=== PATIENT | male | born 1935 | race Caucasian/White ===

== ENCOUNTER 2016-07-07 10:12 | Outpatient (CLI) | payer MEDICARE, BC | END 2016-07-07 10:13 | disposition home or self-care (01) | DX: I35.0 Nonrheumatic aortic (valve) stenosis (principal) ==

== ENCOUNTER 2016-07-15 17:39 | Emergency (ER) | payer MEDICARE, BC ==
[2016-07-15] MEDS ORDERED: IOPAMIDOL-300 100 ML VIAL IVP ONE (20:07)
[2016-07-15] MEDS ORDERED: PATIENT OWN MED PO STA (20:15)
== END 2016-07-15 21:06 | disposition short-term general hospital (02) ==
DX: J90 Pleural effusion, not elsewhere classified (principal); Z95.2 Presence of prosthetic heart valve; I51.7 Cardiomegaly; I25.10 Atherosclerotic heart disease of native coronary artery without angina pectoris; I71.2 Thoracic aortic aneurysm, without rupture; Z79.82 Long term (current) use of aspirin
CPT/HCPCS: 36415; 71010; 71275; 80053; 83690; 83880; 84484; 85025; 93005; 93010; 99284; 99285; Q9967

== ENCOUNTER 2016-07-15 20:55 | Outpatient (CLI) | payer MEDICARE, BC | END 2016-07-15 20:56 | disposition short-term general hospital (02) | DX: J90 Pleural effusion, not elsewhere classified (principal); Z95.2 Presence of prosthetic heart valve | CPT/HCPCS: A0425; A0426 ==

== ENCOUNTER 2017-06-27 09:21 | Outpatient (CLI) | payer MEDICARE, BC ==
--- NOTE | 2017-06-27 12:29 | XRAY Report ---
TWO VIEW CHEST: 06/27/2017 CLINICAL INDICATION: Edema, history of cardiac surgery. FINDINGS: Frontal and lateral views of the chest demonstrate changes of previous cardiac surgery. There is patchy bilateral airspace disease present, which may reflect edema or pneumonia. Pulmonary vascular prominence appears similar to previous. No effusion or pneumothorax is seen. IMPRESSION: POSTOPERATIVE CHANGES AND PULMONARY VASCULAR PROMINENCE, WITH PATCHY BILATERAL AIRSPACE DISEASE. THIS MAY REFLECT PULMONARY EDEMA OR SUPERIMPOSED INFECTION. TD: 06/27/2017 12:28
== END 2017-06-27 09:22 | disposition home or self-care (01) ==
LOC: DI 09:21
PROVIDERS: ATTEND Internal Medicine
DX: J98.4 Other disorders of lung (principal)
CPT/HCPCS: 71046

== ENCOUNTER 2017-09-06 09:25 | Outpatient (CLI) | payer MEDICARE, BC ==
[2017-09-06] MEDS ORDERED: IOPAMIDOL-300 100 ML VIAL ONE (10:27)
[2017-09-06] MEDS ORDERED: IOPAMIDOL-300 100 ML VIAL IVP ONE (11:16)
--- NOTE | 2017-09-06 11:17 | CT Report ---
CT CHEST WITH CONTRAST: 09/06/2017 CLINICAL INDICATION: Left-sided chest pain. TECHNIQUE: Axial CT images of the chest were obtained with 80 mL Isovue 300 intravenously. COMPARISON: 07/15/2016. FINDINGS: Postoperative changes of cardiac surgery are stable. No hilar or mediastinal lymphadenopathy is present. The lungs demonstrate fibrosis and bronchiectasis, with basilar atelectasis. No suspicious pulmonary nodule or mass lesion is appreciated. No effusion or pneumothorax is present. A small hiatal hernia is noted. Osseous structures demonstrate degenerative and postoperative changes. IMPRESSION: FIBROSIS AND BRONCHIECTASIS. POSTOPERATIVE CHANGES. NO EVIDENT ETIOLOGY FOR LEFT CHEST PAIN. CT DOSE REDUCTION STATEMENT In accordance with CT protocol optimization, one or more of the following dose reduction techniques were utilized for this exam: automated exposure control, adjustment of mA and/or KV based on patient size, or use of iterative reconstructive technique. TD: 09/06/2017 10:58
== END 2017-09-06 09:26 | disposition home or self-care (01) ==
LOC: LAB 09:25 → DI 09:26
PROVIDERS: ATTEND Physician Assistant Medical
DX: J84.10 Pulmonary fibrosis, unspecified (principal); J47.9 Bronchiectasis, uncomplicated; R07.9 Chest pain, unspecified
CPT/HCPCS: 36415; 71260; 82565; Q9967

== ENCOUNTER 2017-09-13 18:51 | Outpatient (CLI) | payer MEDICARE, BC ==
--- NOTE | 2017-09-14 09:38 | Ultrasound Report ---
SCROTAL DUPLEX: 09/13/2017 CLINICAL INDICATION: Hydrocele. TECHNIQUE: Real-time scanning was performed with territory representative static images obtained. FINDINGS: The right testicle measures 4.3 x 3.4 x 2.8 cm, and the left testicle measures 4.1 x 3.2 x 2.6 cm. Both testicles demonstrate normal flow and echotexture. The right epididymis demonstrates a small epididymal head cysts, measuring up to 7 mm. The left epididymis is unremarkable. Left greater than right hydrocele are present. No varicocele is identified. IMPRESSION: LEFT GREATER THAN RIGHT HYDROCELES. SMALL RIGHT EPIDIDYMAL HEAD CYSTS. NORMAL TESTES. TD: 09/14/2017 09:09
--- NOTE | 2017-09-14 09:40 | Ultrasound Report ---
LIMITED PELVIC ULTRASOUND: 09/13/2017 CLINICAL INDICATION: Hernia. TECHNIQUE: Real-time scanning was performed with junior sales representative static images obtained. FINDINGS: Ultrasound of the right inguinal region was performed. There is a right inguinal hernia present, with the neck measuring 1.3 cm. Reducible bowel loops are seen within the hernia sac. IMPRESSION: RIGHT INGUINAL HERNIA, CONTAINING REDUCIBLE BOWEL LOOPS. TD: 09/14/2017 09:11
== END 2017-09-13 18:52 | disposition home or self-care (01) ==
LOC: DI 18:51
PROVIDERS: ATTEND Family Medicine
DX: K40.90 Unilateral inguinal hernia, without obstruction or gangrene, not specified as recurrent (principal); N43.3 Hydrocele, unspecified; N50.3 Cyst of epididymis
CPT/HCPCS: 76857; 76870

== ENCOUNTER 2017-10-18 09:10 | Outpatient (CLI) | END 2017-10-18 09:11 | disposition home or self-care (01) ==

== ENCOUNTER 2017-11-14 09:29 | Outpatient (CLI) | payer MEDICARE, BC ==
[2017-11-14 09:51] LABS: BASOPHILS % (AUTO) 0.7 %; EOSINOPHILS # (AUTO) 0.2 10^3/uL (0.0-0.7); EOSINOPHILS % (AUTO) 3.4 %; HGB - HEMOGLOBIN 14.1 g/dL (14.0-18.0); LYMPHOCYTES # (AUTO) 1.5 10^3/uL (1.5-3.5); MEAN CORPUSCULAR HEMOGLOBIN 32.5 pg (27.0-31.0); MEAN CORPUSCULAR HGB CONC 33.6 g/dL (32.0-36.0); MEAN CORPUSCULAR VOLUME 96.8 fL (80.0-94.0); MEAN PLATELET VOLUME 7.5 fL (7.4-11.4); MONOCYTES # (AUTO) 0.6 10^3/uL (0.0-1.0); MONOCYTES % (AUTO) 8.2 %; NEUTROPHILS # (AUTO) 4.5 10^3/uL (1.5-6.6); NEUTROPHILS % (AUTO) 65.7 %; PLT - PLATELET COUNT 173 10^3/uL (130-450); RED BLOOD COUNT 4.32 10^6/uL (4.70-6.10); RED CELL DISTRIBUTION WIDTH 13.9 % (12.0-15.0); WHITE BLOOD COUNT 6.9 x10^3/uL (4.8-10.8)
[2017-11-14 10:10] LABS: ALBUMIN 4.2 g/dL (3.2-5.5); ALBUMIN/GLOBULIN RATIO 1.5 (1.0-2.2); BILIRUBIN,TOTAL 0.9 mg/dL (0.2-1.0); CALCIUM 8.7 mg/dL (8.5-10.3)
== END 2017-11-14 09:30 | disposition home or self-care (01) ==
LOC: LAB 09:29
PROVIDERS: ATTEND Internal Medicine Gastroenterology
DX: K42.9 Umbilical hernia without obstruction or gangrene (principal); E66.9 Obesity, unspecified; I35.8 Other nonrheumatic aortic valve disorders; K21.9 Gastro-esophageal reflux disease without esophagitis; G47.30 Sleep apnea, unspecified; J45.909 Unspecified asthma, uncomplicated; E78.5 Hyperlipidemia, unspecified; I25.10 Atherosclerotic heart disease of native coronary artery without angina pectoris; N43.3 Hydrocele, unspecified; K40.90 Unilateral inguinal hernia, without obstruction or gangrene, not specified as recurrent
CPT/HCPCS: 36415; 80053; 85025; 93005

== ENCOUNTER 2017-11-21 06:00 | Day surgery (SDC) | payer MEDICARE, BC ==
[2017-11-21] MEDS ORDERED: LACTATED RINGERS 1,000 ML IV ONE ×2 (06:39→10:21)
[2017-11-21] MEDS ORDERED: ceFAZolin 2 GM/50 ML 2 GM/50 ML BAG IV ONE (06:40)
[2017-11-21] MEDS ORDERED: BUPIVACAINE 0.25% PF 30 ML VIAL ONE (07:24)
[2017-11-21] MEDS ORDERED: LIDOCAINE 1%-EPI 1:100000 30 ML MDV ONE (07:25)
[2017-11-21] MEDS ORDERED: BUPIVACAINE 0.5% PF 30 ML VIAL ONE (07:48)
[2017-11-21] MEDS ORDERED: BUPIVACAINE 0.5% PF 30 ML VIAL INFIL ONE ×2 (08:15)
[2017-11-21] MEDS ORDERED: LIDOCAINE 1%-EPI 1:100000 20 ML MDV SUBQ ONE ×2 (08:15)
[2017-11-21] MEDS ORDERED: ceFAZolin 1 GM VIAL ONE (08:52)
[2017-11-21] MEDS ORDERED: ceFAZolin 1 GM VIAL IR ONE (08:53)
[2017-11-21] MEDS ORDERED: WATER FOR INJECTION,STERILE 10 ML ONE (08:58)
[2017-11-21] MEDS ORDERED: PROPOFOL 200 MG/20 ML VIAL IVP ONE (09:54)
[2017-11-21] MEDS ORDERED: LIDOCAINE-MPF 2% 5 ML VIAL IM ONE (09:54)
[2017-11-21] MEDS ORDERED: ACETAMINOPHEN 1,000 MG/100 ML 100 ML IV ONE (09:54)
--- NOTE | 2017-11-21 10:22 | OPERATIVE REPORT ---
DATE OF SERVICE: 11/21/2017 Physician: Bobby Zavala MD PREOPERATIVE DIAGNOSIS: Symptomatic right inguinal hernia. POSTOPERATIVE DIAGNOSIS: Symptomatic right inguinal hernia, direct. PROCEDURE PERFORMED: Open repair of symptomatic right direct inguinal hernia with ProGrip polypropylene mesh. ANESTHESIA: Local plus monitored anesthesia care by Dr. Omer. SURGEON: Bobby Zavala MD. ESTIMATED BLOOD LOSS: 10 mL. COMPLICATIONS: None. FINDINGS: Large cord lipoma was present within the inguinal canal, and a moderate sized direct right inguinal hernia was present. There was no evidence of indirect or femoral hernia. INDICATIONS FOR PROCEDURE: The patient is an 82-year-old gentleman with an increasingly painful, tender, reducible right groin bulge. He was diagnosed with a symptomatic right inguinal hernia, and advised to undergo repair. Local anesthesia will be used with monitored anesthesia care to minimize perioperative risk due to multiple severe medical comorbidities. TECHNIQUE: After informed consent, the patient was taken to the operating room where he was sedated and monitored. Preoperative preparation included the application of sequential calf compression boots, administration of 2 grams of cefazolin intravenously within an hour of the incision. His right groin was clipped and prepared with iodoform solution, following which a right groin block was instituted using a 50:50 combination of 0.5% Marcaine plain and 1% lidocaine with epinephrine. A total of 60 mL of the mixture was used. The right groin was re-prepared with ChloraPrep solution, and draped in the usual sterile fashion. A transverse incision was made in the skin lines of the right groin beginning just above the right pubic tubercle, and extending laterally approximately 6 cm in length. Hemostasis achieved with electrocautery and 2-0 Vicryl ties. Incision was carried down through the subcutaneous tissues until the external oblique aponeurosis was identified, and was incised along the lines of its fibers in such a manner as to open the external ring and expose the internal ring. The ilioinguinal nerve was divided to avoid entrapment and injury. The spermatic cord was mobilized and encircled with a Marnie drain. A large cord lipoma was identified and dissected free from surrounding cord structures at the level of the internal ring, where it was ligated with 2-0 Vicryl ties, amputated and discarded. The direct defect was similarly mobilized free from the surrounding cord structures, and was reduced into the peritoneal cavity, and the inguinal floor reinforced using interrupted 0 Ethibond sutures to maintain the reduction prior to mesh implantation. After hemostasis was assured and the inguinal floor fully exposed, the wound was irrigated with antibiotic solution containing 1 gram of cefazolin per liter, following which a right-sided ProGrip expanded polypropylene mesh was placed onto the field, soaked in the antibiotic solution, trimmed to appropriate size, and placed over the inguinal floor where it was secured circumferentially with interrupted 3-0 PDS sutures. Care was taken to avoid excessive entrapment of the cord by the mesh. The mesh was seen to lie nicely over the inguinal floor, covering it in its entirety, and extending beyond the internal ring laterally for approximately 3 cm. Again after hemostasis was assured, the wound was irrigated with antibiotic solution following which wound closure was accomplished in layers using continuous 2-0 Vicryl to reapproximate the external oblique aponeurosis overlying the cord, followed by 3-0 Vicryl for Eyal's fascia, followed by 4-0 Monocryl subcuticular skin closure and Dermabond. The procedure was then terminated. The patient was transferred out of the operating room in satisfactory condition. Sponge and needle counts were correct x2. No drains were used. TD: 11/21/2017 10:05
[2017-11-21 10:52] VITALS: BP 142/73
== END 2017-11-21 06:01 | disposition home or self-care (01) ==
LOC: SDS 06:00
PROVIDERS: ATTEND Internal Medicine Gastroenterology
PROC: 0VBF0ZZ Excision of Right Spermatic Cord, Open Approach (ICD-10-PCS; 2017-11-21)
PROC: 0YU50JZ Supplement Right Inguinal Region with Synthetic Substitute, Open Approach (ICD-10-PCS; principal; 2017-11-21 07:30)
DX: K40.90 Unilateral inguinal hernia, without obstruction or gangrene, not specified as recurrent (principal); D17.6 Benign lipomatous neoplasm of spermatic cord; G47.30 Sleep apnea, unspecified; I25.2 Old myocardial infarction; Z95.5 Presence of coronary angioplasty implant and graft; J45.909 Unspecified asthma, uncomplicated; E78.5 Hyperlipidemia, unspecified; Z87.891 Personal history of nicotine dependence; I25.10 Atherosclerotic heart disease of native coronary artery without angina pectoris; I35.8 Other nonrheumatic aortic valve disorders; N43.3 Hydrocele, unspecified; I50.9 Heart failure, unspecified
CPT/HCPCS: 49505; 55520; C1781; J0690; J7120

== ENCOUNTER 2018-03-23 10:29 | Outpatient (CLI) | payer MEDICARE, BC ==
--- NOTE | 2018-03-23 12:18 | XRAY Report ---
Reason: CERVICAL RADICULITIS Procedure Date: 03/23/2018 Accession Number: [id number] / [id number] Procedure: XR - Cervical Spine Complete CPT Code: FULL RESULT: EXAM: CERVICAL SPINE RADIOGRAPHY EXAM DATE: 03/23/2018 11:00 AM. CLINICAL HISTORY: CERVICAL RADICULITIS. COMPARISONS: None. TECHNIQUE: 5 views. FINDINGS: Alignment: 2 mm degenerative appearing anterolisthesis of C6 on C7. Bones: The lateral masses are asymmetric on the odontoid view with 2 mm shift to the left. The cervical vertebral bodies and posterior elements are well-visualized from the skull base through C7. Disks: There is multilevel complete loss of disk space height from C4 to C6. Facets: Moderate to severe facet arthropathy and lateral mass degenerative changes are noted throughout the cervical spine. Neural Foramina: The right C3-C4 neural foramen is moderately narrowed. Mild osseous neural foraminal narrowing is otherwise noted bilaterally at multiple levels in the mid cervical spine. Soft Tissues: Status post median sternotomy. No prevertebral soft tissue swelling. The visualized lung apices are clear. IMPRESSION: Moderate to severe degenerative changes as described. Asymmetric appearance of the odontoid view. This can be seen with suboptimal rotated positioning; however, in the trauma setting, this is considered suspicious. If there is any concern for injury to the C1-C2 complex, a low clinical threshold should be used to clarify the finding by CT cervical spine without contrast. The atlantooccipital relationship is not clear with these radiographs. RADIA
== END 2018-03-23 10:30 | disposition home or self-care (01) ==
LOC: DI 10:29
PROVIDERS: ATTEND Family Medicine
DX: M50.10 Cervical disc disorder with radiculopathy, unspecified cervical region (principal); M48.02 Spinal stenosis, cervical region
CPT/HCPCS: 72050

== ENCOUNTER 2018-04-27 11:41 | Day surgery (SDC) | payer MEDICARE, BC ==
[2018-04-27] MEDS ORDERED: LACTATED RINGERS 1,000 ML IV ONE (12:26)
--- NOTE | 2018-04-27 13:31 | ANESTHESIA ---
Pre-Anesthesia VS, & Labs - Diagnosis Change in bowel habits - Procedure Colonscopy Vital Signs: Temp Pulse Resp BP Pulse Ox 36.4 C L 98 28 H 150/91 H 97 04/27/18 11:58 04/27/18 11:58 04/27/18 11:58 04/27/18 11:58 04/27/18 11:58 Height 5 ft 10 in Weight (kg) 93.1 kg Body Mass Index 30.1 - NPO >8 hours Home Medications and Allergies Aspirin [Aspir 81] 81 mg PO DAILY 08/09/13 Atorvastatin Calcium [Lipitor] 40 mg PO DAILY 07/15/16 Acetaminophen 500 mg PO TID PRN 11/18/17 Cetirizine [ZyrTEC] 10 mg PO DAILY PRN 11/18/17 Cyclobenzaprine [Flexeril] 10 mg PO TID PRN 11/18/17 Ranitidine HCl [Acid Control] 150 mg PO DAILY 11/18/17 Senna [Senokot] 8.6 mg PO BID 11/18/17 Terazosin HCl 10 mg PO DAILY 11/18/17 Clobetasol Propionate/Emoll [Clobetasol Emollient 0.05% Crm] 15 gm TP DAILY 11/21/17 Nystatin Cream [Mycostatin Cream] 15 applic TOP DAILY 11/21/17 Allergies/Adverse Reactions: Allergies Allergy/AdvReac Type Severity Reaction Status Date / Time codeine Allergy Emesis Verified 11/18/17 12:34 fluoxetine HCl * AdvReac Severe Unknown Verified 04/27/18 12:24 [From Prozac] erythromycin base AdvReac Unknown Verified 11/18/17 12:34 horse serum Allergy Unknown Uncoded 04/27/18 12:21 Anes History & Medical History - Anesthetic History Anesthesia Complications: reports: No previous complications Family history of Anesthesia Complications: Denies Family history of Malignant Hyperthermia: Denies - Medical History Cardiovascular: reports: Congestive heart failure, Hypertension, High cholesterol, Coronary artery disease, Angina, [place], Atrial fibrillation, Arrhythmia Pulmonary: reports: Shortness of breath, Sleep apnea, CPAP use, Other Gastrointestinal: reports: GERD, GI bleed, Hemorrhoids, Cholelithiasis Urinary: reports: Benign prostate hypertrophy, Retention, Other Neuro: reports: None Musculoskeletal: reports: Osteoarthritis, Chronic back pain, Other Endocrine/Autoimmune: reports: None Blood Disorders: reports: None Skin: reports: Other Smoking Status: Former smoker Psychosocial: reports: No issues indicated - Surgical History General: Cholecystectomy, Appendectomy, Colonoscopy, Other Eyes Ears Nose Throat (EENT): Cataracts, Tonsil/Adenoidectomy Cardiothoracic: CABG, Coronary stent, Cardiac catheterization Urologic: Prostatic surgery Orthopedic: Rotator cuff repair Dermatologic: Skin cancer surgery Exam General: Alert, Oriented x3 Dental: WNL Mouth Opening: Greater than 4 Fingerbreadths Neck Mobility: Normal Mallampati classification: I Thyromental Distance: greater than 6 cm Respiratory: Normal breath sounds Cardiovascular: Regular rate Neurological: Normal gait Mental/Cognitive Status: Alert/Oriented X3 Cognitive Status: Within normal limits Plan Anesthesia Type: Total IV Consent for Procedure(s) Verified and Reviewed: Yes Code Status: Attempt Resuscitation ASA classification: 3-Severe systemic disease Is this case an emergency?: No
[2018-04-27] MEDS ORDERED: LIDOCAINE-MPF 2% 5 ML VIAL IM ONE (14:55)
[2018-04-27] MEDS ORDERED: PROPOFOL 200 MG/20 ML VIAL IVP ONE (14:55)
[2018-04-27 15:32] VITALS: BP 126/85
== END 2018-04-27 11:42 | disposition home or self-care (01) ==
LOC: SDS 11:41
PROVIDERS: ATTEND Internal Medicine Gastroenterology
PROC: 0DBP8ZZ Excision of Rectum, Via Natural or Artificial Opening Endoscopic (ICD-10-PCS; principal; 2018-04-27 12:45)
DX: D12.8 Benign neoplasm of rectum (principal); G47.33 Obstructive sleep apnea (adult) (pediatric); I11.0 Hypertensive heart disease with heart failure; I50.9 Heart failure, unspecified; E78.00 Pure hypercholesterolemia, unspecified; I25.119 Atherosclerotic heart disease of native coronary artery with unspecified angina pectoris; I48.91 Unspecified atrial fibrillation; G47.30 Sleep apnea, unspecified; K21.9 Gastro-esophageal reflux disease without esophagitis; N40.1 Benign prostatic hyperplasia with lower urinary tract symptoms; R33.8 Other retention of urine; M19.90 Unspecified osteoarthritis, unspecified site; G89.29 Other chronic pain; M54.9 Dorsalgia, unspecified; I25.2 Old myocardial infarction; Z87.891 Personal history of nicotine dependence; Z95.5 Presence of coronary angioplasty implant and graft; Z95.1 Presence of aortocoronary bypass graft; Z79.82 Long term (current) use of aspirin; Z79.891 Long term (current) use of opiate analgesic
CPT/HCPCS: 45380; J7120

== ENCOUNTER 2018-05-17 10:22 | Outpatient (CLI) | payer MEDICARE, BC ==
[2018-05-17 10:41] LABS: BASOPHILS # (AUTO) 0.1 10^3/uL (0.0-0.1); BASOPHILS % (AUTO) 0.8 %; EOSINOPHILS # (AUTO) 0.4 10^3/uL (0.0-0.7); EOSINOPHILS % (AUTO) 4.6 %; HGB - HEMOGLOBIN 14.8 g/dL (14.0-18.0); LYMPHOCYTES # (AUTO) 1.8 10^3/uL (1.5-3.5); LYMPHOCYTES % (AUTO) 22.3 %; MEAN CORPUSCULAR HEMOGLOBIN 32.5 pg (27.0-31.0); MEAN CORPUSCULAR HGB CONC 33.9 g/dL (32.0-36.0); MEAN CORPUSCULAR VOLUME 95.8 fL (80.0-94.0); MONOCYTES # (AUTO) 0.7 10^3/uL (0.0-1.0); MONOCYTES % (AUTO) 9.2 %; NEUTROPHILS # (AUTO) 4.9 10^3/uL (1.5-6.6); NEUTROPHILS % (AUTO) 63.1 %; PLT - PLATELET COUNT 177 10^3/uL (130-450); RED BLOOD COUNT 4.56 10^6/uL (4.70-6.10); RED CELL DISTRIBUTION WIDTH 13.4 % (12.0-15.0); WHITE BLOOD COUNT 7.8 x10^3/uL (4.8-10.8)
[2018-05-17 11:09] LABS: BILIRUBIN,URINE NEGATIVE (NEGATIVE); GLUCOSE, URINE (UA) NEGATIVE (NEGATIVE); KETONES,URINE (UA) NEGATIVE (NEGATIVE); LEUKOCYTE ESTERASE, URINE NEGATIVE (NEGATIVE); NITRITE,URINE NEGATIVE (NEGATIVE); OCCULT BLOOD,URINE NEGATIVE (NEGATIVE); PROTEIN,URINE NEGATIVE (NEGATIVE); UROBILINOGEN,URINE 0.2 (NORMAL) E.U./dL (NORMAL)
[2018-05-17 11:11] LABS: CLARITY,URINE CLEAR (CLEAR)
[2018-05-17 11:12] LABS: ALBUMIN 4.5 g/dL (3.2-5.5); ALBUMIN/GLOBULIN RATIO 1.7 (1.0-2.2); BILIRUBIN,TOTAL 0.9 mg/dL (0.2-1.0); CALCIUM 9.1 mg/dL (8.5-10.3); TOTAL PROTEIN 7.2 g/dL (6.7-8.2)
[2018-05-17 11:21] LABS: BACTERIA,URINE None Seen /HPF (None Seen); RBC,URINE None Seen /HPF (0-5); SQUAMOUS EPITHELIAL CELL,UR NONE SEEN (<= Few)
== END 2018-05-17 10:23 | disposition home or self-care (01) ==
LOC: LAB 10:22
PROVIDERS: ATTEND Internal Medicine Gastroenterology
DX: R11.0 Nausea (principal); N40.1 Benign prostatic hyperplasia with lower urinary tract symptoms; I25.10 Atherosclerotic heart disease of native coronary artery without angina pectoris
CPT/HCPCS: 36415; 80053; 81001; 85025; 87086

== ENCOUNTER 2018-06-05 07:51 | Day surgery (SDC) | payer MEDICARE, BC ==
--- NOTE | 2018-06-05 08:32 | ANESTHESIA ---
Pre-Anesthesia VS, & Labs - Diagnosis Open repair Left inguinal hernia with mesh - Procedure Left inguinal hernia Vital Signs: Temp Pulse Resp BP Pulse Ox 36.5 C 73 18 156/93 H 96 06/05/18 08:05 06/05/18 08:05 06/05/18 08:05 06/05/18 08:05 06/05/18 08:05 Height 5 ft 10 in Weight (kg) 92.2 kg Body Mass Index 30.1 Home Medications and Allergies Aspirin [Aspir 81] 81 mg PO DAILY 08/09/13 Atorvastatin Calcium [Lipitor] 40 mg PO DAILY 07/15/16 Acetaminophen 500 mg PO TID PRN 11/18/17 Cetirizine [ZyrTEC] 10 mg PO DAILY PRN 11/18/17 Cyclobenzaprine [Flexeril] 10 mg PO TID PRN 11/18/17 Ranitidine HCl [Acid Control] 150 mg PO DAILY 11/18/17 Senna [Senokot] 8.6 mg PO BID 11/18/17 Terazosin HCl 10 mg PO DAILY 11/18/17 Clobetasol Propionate/Emoll [Clobetasol Emollient 0.05% Crm] 15 gm TP DAILY 11/21/17 Nystatin Cream [Mycostatin Cream] 15 applic TOP DAILY 11/21/17 Allergies/Adverse Reactions: Allergies Allergy/AdvReac Type Severity Reaction Status Date / Time codeine Allergy Emesis Verified 11/18/17 12:34 fluoxetine HCl * AdvReac Severe urinary Verified 05/25/18 13:56 [From Prozac] retention erythromycin base AdvReac restrictive Verified 05/25/18 13:56 airway horse serum Allergy blindness Uncoded 05/25/18 13:56 Anes History & Medical History - Medical History Cardiovascular: reports: Congestive heart failure, Hypertension, High cholesterol, Coronary artery disease, Angina, [place], Atrial fibrillation, Arrhythmia, Valve disorder, Other (Saw green coffee blender in December, patient repor kieran no concerns. Stated last stress test was WNL) Pulmonary: reports: Asthma, Shortness of breath, Sleep apnea (Does not use CPAP), Other Gastrointestinal: reports: GERD, GI bleed, Colon polyps, Hemorrhoids, Cholelithiasis Urinary: reports: Benign prostate hypertrophy, Retention Neuro: reports: None Musculoskeletal: reports: Osteoarthritis, Chronic back pain Endocrine/Autoimmune: reports: None Blood Disorders: reports: None Skin: reports: Other Smoking Status: Former smoker (Quit 1985) - Surgical History General: Cholecystectomy, Appendectomy, Colonoscopy, Other Eyes Ears Nose Throat (EENT): Cataracts, Tonsil/Adenoidectomy, Other Cardiothoracic: Coronary stent, Valve replacement (AVR replacement 2016), Cardiac catheterization Urologic: Prostatic surgery Gynecologic:  Orthopedic: Hip replacement, Rotator cuff repair Dermatologic: Skin cancer surgery Results - EKG Results EKG Comparison: Reviewed EKG Exam General: Alert, Oriented x3, Cooperative, No acute distress Dental: WNL Mouth Openin Fingerbreadth Neck Mobility: Normal Mallampati classification: II Thyromental Distance: 4-6 cm Respiratory: Lungs clear, Normal breath sounds, No respiratory distress, No accessory muscle use Cardiovascular: Regular rate, Normal S1, Normal S2, No murmurs Mental/Cognitive Status: Alert/Oriented X3, Normal for patient Plan Anesthesia Type: General, MAC Consent for Procedure(s) Verified and Reviewed: Yes Code Status: Attempt Resuscitation ASA classification: 3-Severe systemic disease Is this case an emergency?: No
[2018-06-05] MEDS ORDERED: LACTATED RINGERS 1,000 ML IV ONE ×2 (08:43→11:39)
[2018-06-05] MEDS ORDERED: LIDOCAINE 1% 50 ML MDV ONE (08:51)
[2018-06-05] MEDS ORDERED: BUPIVACAINE 0.5%-EPI 1:200000 PF 30 ML VIAL ONE (08:52)
[2018-06-05] MEDS ORDERED: KETAMINE 500 MG/10 ML VIAL IVP ONE (09:00)
[2018-06-05] MEDS ORDERED: LIDOCAINE-MPF 2% 5 ML VIAL IM ONE (09:00)
[2018-06-05] MEDS ORDERED: PROPOFOL 200 MG/20 ML VIAL IVP ONE (09:00)
[2018-06-05] MEDS ORDERED: KETOROLAC 30 MG/ML VIAL IVP ONE (09:00)
[2018-06-05] MEDS ORDERED: MIDAZOLAM 2 MG/2 ML VIAL IVP ONE (09:00)
[2018-06-05] MEDS ORDERED: ePHEDrine 50 MG/ML VIAL IVP ONE (09:00)
[2018-06-05] MEDS ORDERED: ONDANSETRON 4 MG/2 ML VIAL IVP ONE (09:00)
[2018-06-05] MEDS ORDERED: ceFAZolin 1 GM VIAL ONE (09:03)
[2018-06-05] MEDS ORDERED: LIDOCAINE 1% 50 ML MDV SUBQ ONE ×2 (09:53)
[2018-06-05] MEDS ORDERED: BUPIVACAINE 0.5%-EPI 1:200000 PF 30 ML VIAL SUBQ ONE ×2 (09:53)
[2018-06-05] MEDS ORDERED: ceFAZolin 1 GM VIAL IR ONE (09:58)
[2018-06-05] MEDS ORDERED: IBUPROFEN 600 MG TABLET PO PRN (11:15)
[2018-06-05] MEDS ORDERED: ACETAMINOPHEN 325 MG TABLET PO PRN (11:15)
[2018-06-05] MEDS ORDERED: oxyCODONE 5 MG TABLET PO PRN (11:15)
[2018-06-05] MEDS ORDERED: ONDANSETRON 4 MG/2 ML VIAL IVP PRN (11:15)
--- NOTE | 2018-06-05 11:50 | OPERATIVE REPORT ---
DATE OF SERVICE: 06/05/2018 Physician: Bobby Zavala MD PREOPERATIVE DIAGNOSIS: Symptomatic left inguinal hernia. POSTOPERATIVE DIAGNOSIS: Symptomatic left inguinal hernia. PROCEDURE PERFORMED: Open repair with polypropylene mesh. ANESTHESIA: Local MAC converted to general LMA by Tiana Borja CRNA. SURGEON: Bobby Zavala MD ESTIMATED BLOOD LOSS: 10 mL. COMPLICATIONS: None. FINDINGS: A large sliding indirect inguinal hernia was present with preperitoneal fat comprising the sliding component. There was no evidence of direct or femoral hernia. INDICATIONS FOR PROCEDURE: Patient is an 83-year-old gentleman with an enlarging painful left groin bulge. Examination revealed a reducible left inguinal hernia extending into the scrotum. He was adv ised to undergo repair. TECHNIQUE: After informed consent, patient was taken to the operating room where he was sedated and monitored. Preoperative preparation included application of sequential calf compression boots and ad ministration of 2 grams cefazolin intravenously within 1 hour of the incision. His left groin had be en clipped in the ASU and was prepared with iodoform solution, following which a left groin block was instituted using a 50:50 combination of 1% lidocaine plain and 0.5% Marcaine with epinephrine. A to majo of 30 mL of the mixture was used. The patient's left groin was then re-prepared with ChloraPrep and draped in the usual sterile fashion. Because of repeated coughing that was unable to be readily controlled, patient was converted to general laryngeal mask anesthesia. A transverse incision was made in the skin lines of the left groin beginning above the pubic tubercle , extending laterally for a distance of approximately 5 cm. Hemostasis achieved with electrocautery and 2-0 Vicryl ties. Incision carried down through subcutaneous tissues until the external oblique a poneurosis was identified and was incised along the lines of its fibers in such a manner as to open t he external ring and expose the internal ring. The ilioinguinal nerve was identified, mobilized and divided to avoid entrapment and neuralgia postop. Spermatic cord was mobilized and encircled with a [place] drain. It was carefully dissected, isolating a large sliding component of preperitoneal fat, which was dissected and highly ligated, and divided at the level of the internal ring using 2-0 Vicr yl ties. This fatty tissue was excised and discarded. Careful search for true indirect and direct d efects was made and none was identified. After the cord had been appropriately skeletonized and hemo stasis achieved, the wound was irrigated with saline solution containing 1 gram of cefazolin per lite r, following which a Covidien medium-weight expanded polypropylene mesh that was precut and slotted w as soaked in antibiotic solution, placed over the inguinal floor and secured in place circumferential ly with continuous 3-0 Prolene sutures, securing the mesh to the shelving edge of Poupart's ligament inferiorly, to the internal oblique aponeurosis laterally and superiorly and to the lateral border of the rectus sheath medially. Care was taken to avoid excessive tightening of the patch around the co rd at the level of the internal ring. After hemostasis was assured, wound closure was accomplished in layers using continuous 2-0 Vicryl to reapproximate the external oblique aponeurosis overlying the cord, followed by 3-0 Vicryl to reappro ximate Eyal's fascia, followed by 4-0 Vicryl subcuticular skin closure, followed by Dermabond. Ane sthesia was terminated and patient transferred to the recovery room in satisfactory condition. Spong e and needle counts were correct and no drains were used. cc: Raymundo Santa DO TD: 06/05/2018 11:32
[2018-06-05 14:06] VITALS: BP 127/73
== END 2018-06-05 07:52 | disposition home or self-care (01) ==
LOC: SDS 07:51
PROVIDERS: ATTEND Internal Medicine Gastroenterology
PROC: 0YU60JZ Supplement Left Inguinal Region with Synthetic Substitute, Open Approach (ICD-10-PCS; principal; 2018-06-05 09:00)
DX: K40.91 Unilateral inguinal hernia, without obstruction or gangrene, recurrent (principal); R11.0 Nausea; N40.1 Benign prostatic hyperplasia with lower urinary tract symptoms; R33.8 Other retention of urine; K59.09 Other constipation; J45.909 Unspecified asthma, uncomplicated; G47.30 Sleep apnea, unspecified; J84.10 Pulmonary fibrosis, unspecified; E66.9 Obesity, unspecified; Z68.30 Body mass index [BMI] 30.0-30.9, adult; I25.10 Atherosclerotic heart disease of native coronary artery without angina pectoris; E78.5 Hyperlipidemia, unspecified; K21.9 Gastro-esophageal reflux disease without esophagitis; F32.9 Major depressive disorder, single episode, unspecified; Z79.52 Long term (current) use of systemic steroids; Z79.82 Long term (current) use of aspirin; Z79.51 Long term (current) use of inhaled steroids; Z95.5 Presence of coronary angioplasty implant and graft; I25.2 Old myocardial infarction; Z85.820 Personal history of malignant melanoma of skin; Z87.891 Personal history of nicotine dependence; Z95.3 Presence of xenogenic heart valve
CPT/HCPCS: 49525; J7120

== ENCOUNTER 2018-08-22 14:11 | Outpatient (CLI) | payer MEDICARE, BC ==
--- NOTE | 2018-08-23 11:31 | XRAY Report ---
Reason: BACK PAIN,RADICULAR SX,RIGHT HIP PAIN Procedure Date: 08/22/2018 Accession Number: [id number] / [id number] Procedure: XR - Hip w/Pelvis 2-3V RT CPT Code: FULL RESULT: EXAM: RIGHT HIP RADIOGRAPHY EXAM DATE: 08/22/2018 03:06 PM. CLINICAL HISTORY: Back pain, radicular symptoms, right hip pain. COMPARISON: XR HIP UNILAT MIN 2 VIEW 01/14/2009 7:02 PM. TECHNIQUE: 2 views. FINDINGS: The patient is status post interval bilateral total hip arthroplasty with no periprosthetic lucency to suggest hardware failure. No fracture or subluxation is detected. Bones are qualitatively osteopenic. IMPRESSION: Interval bilateral total hip arthroplasty. RADIA
--- NOTE | 2018-08-23 11:31 | XRAY Report ---
Reason: BACK PAIN/RADICULAR SX Procedure Date: 08/22/2018 Accession Number: [id number] / [id number] Procedure: XR - Lumbar Spine Complete CPT Code: FULL RESULT: EXAM: LUMBOSACRAL SPINE RADIOGRAPHY EXAM DATE: 08/22/2018 02:50 PM. CLINICAL HISTORY: Back pain/radicular symptoms. COMPARISONS: None. TECHNIQUE: 4 views. FINDINGS: Alignment: Normal. No spondylolisthesis or scoliosis. Osseous neural foramina are preserved on oblique views. Bones: Five [id number] lumbar vertebral bodies are present. The bones are qualitatively osteopenic; this limits evaluation for underlying fractures or masses. There is questionably mild loss of height of the L5 vertebral body, less than 25%. Otherwise, no fracture detected. Disks: Normal. Disk heights are maintained. Facets: Moderate to severe facet arthropathy predominating on L5. Sacroiliac Joints: Unremarkable. Soft Tissues: Normal. The visualized bowel gas pattern is normal. IMPRESSION: The bones are qualitatively osteopenic; this limits evaluation for underlying fractures or masses. Degenerative changes as described. RADIA
== END 2018-08-22 14:12 | disposition home or self-care (01) ==
LOC: DI 14:11
PROVIDERS: ATTEND Physician Assistant
DX: M47.9 Spondylosis, unspecified (principal); M85.88 Other specified disorders of bone density and structure, other site; M25.551 Pain in right hip; Z96.641 Presence of right artificial hip joint
CPT/HCPCS: 72110

== ENCOUNTER 2018-11-02 12:59 | Emergency (ER) | payer MEDICARE, BC ==
--- NOTE | 2018-11-02 13:20 | ED Physician Documentation ---
PD HPI CHEST PAIN - Stated complaint Stated Complaint: CHEST PX/DIFFICUTLY BREATHING - Chief complaint Chief Complaint: Cardiac - History obtained from History obtained from: Patient, Family - History of Present Illness Timing - onset: How many days ago (5) Timing - onset during: Light activity Timing - duration: Days (5) Timing - details: Gradual onset, Still present, Waxing and waning Pain level now: 4 Quality: Sharp, Pain Location: Substernal, Left chest Radiation: Jaw, Neck, Back Improved by: Rest Worsened by: Exertion, Inspiration, Movement Similar symptoms before: Diagnosis (angina) Recently seen: Clinic - Additional information Additional information: 83-year-old male with history of pulmonary fibrosis and an aortic valve replacement and stents for coronary disease has developed a cough 5 days ago and shortness of breath. He was seen by his primary care doctor and placed on a course of prednisone. He has been back out working in his yard and today he was out working when he developed acute shortness of breath and chest pain radiating to his neck and jaw. Review of Systems Constitutional: denies: Fever Eyes: denies: Decreased vision Ears: denies: Ear pain Nose: reports: Rhinorrhea / runny nose, Congestion Throat: denies: Sore throat Cardiac: reports: Chest pain / pressure, Palpitations. denies: Pedal edema, Calf pain Respiratory: reports: Dyspnea, Cough GI: denies: Abdominal Pain, Nausea, Vomiting : denies: Dysuria, Frequency PD PAST MEDICAL HISTORY - Past Medical History Cardiovascular: Congestive heart failure, Hypertension, High cholesterol, Coronary artery disease, Angina, [place], Atrial fibrillation, Arrhythmia, Valve disorder, Other (Saw assistant office manager in December, patient reported no concerns. 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:  Cardiovascular: Coronary stent, Valve replacement (AVR replacement 2017), Cardiac catheterization HEENT: Cataracts, Tonsil/Adenoidectomy, Other Derm: Skin cancer surgery - Present Medications Home Medications: Ambulatory Orders Medication Instructions Recorded Confirmed Aspirin [Aspir 81] 81 mg PO DAILY 08/09/13 06/05/18 Atorvastatin Calcium [Lipitor] 40 mg PO DAILY 07/15/16 06/05/18 Acetaminophen 500 mg PO TID PRN 11/18/17 05/25/18 Cetirizine [ZyrTEC] 10 mg PO DAILY PRN 11/18/17 06/05/18 Cyclobenzaprine [Flexeril] 10 mg PO TID PRN 11/18/17 06/05/18 Ranitidine HCl [Acid Control] 150 mg PO DAILY 11/18/17 06/05/18 Senna [Senokot] 8.6 mg PO BID 11/18/17 05/25/18 Terazosin HCl 10 mg PO DAILY 11/18/17 06/05/18 Clobetasol Propionate/Emoll 15 gm TP DAILY 11/21/17 06/05/18 [Clobetasol Emollient 0.05% Crm] Nystatin Cream [Mycostatin Cream] 15 applic TOP DAILY 11/21/17 06/05/18 - Allergies Allergies/Adverse Reactions: Allergies Allergy/AdvReac Type Severity Reaction Status Date / Time codeine Allergy Emesis Verified 11/02/18 13:07 fluoxetine HCl * AdvReac Severe urinary Verified 11/02/18 13:07 [From Prozac] retention Horse/Equine Containing AdvReac Severe Blindness Verified 11/02/18 13:07 Products erythromycin base AdvReac restrictive Verified 11/02/18 13:07 airway - Social History Does the pt smoke?: No Smoking Status: Former smoker (Quit 1985) Does the pt drink ETOH?: Yes Does the pt have substance abuse?: No - Immunizations Immunizations are current?: No Immunizations: TDAP >10years/unknown - POLST Patient has POLST: No PD ED PE NORMAL - Vitals Vital signs reviewed: Yes (hypertensive ) - General General: Alert and oriented X 3, Well developed/nourished - HEENT HEENT: Atraumatic, PERRL, EOMI - Neck Neck: Supple, no meningeal sign, No bony TTP - Cardiac Cardiac: RRR, No murmur - Respiratory Respiratory: No respiratory distress, Other (diminished breath sounds ) - Abdomen Abdomen: Soft, Non tender - Back Back: No CVA TTP, No spinal TTP - Derm Derm: Normal color, Warm and dry, No rash - Extremities Extremities: No deformity, No edema - Neuro Neuro: Alert and oriented X 3, 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, No motor deficit, No sensory deficit, Normal speech Eye Opening: Spontaneous Motor: Obeys Commands Verbal: Oriented GCS Score: 15 - Psych Psych: Normal mood, Normal affect Results - Vitals Vitals: Vital Signs - 24 hr 11/02/18 11/02/18 11/02/18 13:04 13:21 13:42 Temperature 36.8 C 36.8 C Heart Rate 71 66 68 Respiratory 19 16 16 Rate Blood Pressure 144/72 H 146/90 H 130/83 H O2 Saturation 97 96 96 11/02/18 11/02/18 11/02/18 14:39 14:41 15:11 Temperature 36.6 C Heart Rate 65 60 75 Respiratory 16 10 L 17 Rate Blood Pressure 135/71 H 140/75 H O2 Saturation 96 96 11/02/18 15:59 Temperature 36.5 C Heart Rate 72 Respiratory 20 Rate Blood Pressure 107/62 O2 Saturation 96 Oxygen O2 Source Room air - EKG (time done) 1307 Rate: Rate (enter#) (68) Rhythm: NSR QRS: LVH Compare to prior EKG: Unchanged from prior EKG (SPT 11-14-17 no significant change. ) Computer interpretation: Agree with computer - Labs Labs: Laboratory Tests 11/02/18 11/02/18 11/02/18 13:07 13:07 13:07 WBC 10.9 H RBC 4.26 L Hgb 13.8 L Hct 41.3 L MCV 96.9 H MCH 32.4 H MCHC 33.4 RDW 13.8 Plt Count 199 MPV 9.8 Neut # (Auto) 7.6 H Lymph # (Auto) 2.3 [place] # (Auto) 0.9 Eos # (Auto) 0.1 Baso # (Auto) 0.0 Absolute Nucleated RBC 0.00 Nucleated RBC % 0.0 Sodium 142 Potassium 4.3 Chloride 108 Carbon Dioxide 22 Anion Gap 12.0 BUN 19 Creatinine 0.8 Estimated GFR (MDRD) 92 Glucose 88 Calcium 9.2 Total Bilirubin 1.2 H AST 22 ALT 20 Alkaline Phosphatase 57 Troponin I 0.20 Total Protein 7.0 Albumin 4.2 Globulin 2.8 Albumin/Globulin Ratio 1.5 Lipase 31 11/02/18 15:18 WBC RBC Hgb Hct MCV MCH MCHC RDW Plt Count MPV Neut # (Auto) Lymph # (Auto) [place] # (Auto) Eos # (Auto) Baso # (Auto) Absolute Nucleated RBC Nucleated RBC % Sodium Potassium Chloride Carbon Dioxide Anion Gap BUN Creatinine Estimated GFR (MDRD) Glucose Calcium Total Bilirubin AST ALT Alkaline Phosphatase Troponin I 0.19 Total Protein Albumin Globulin Albumin/Globulin Ratio Lipase - Rads (name of study) chest Radiology: Prelim report reviewed (Impression 1. There is mild cardiomegaly. Patient has undergone median sternotomy. There is mild thoracic aortic tortuosity. Relatively stable peripheral reticular opacity within the lungs which is likely secondary to interstitial lung disease. No acute intrathoracic plain film abnormality.), EMP read indepedently, See rad report Procedures - IVC sono (time) 1330 Bedside IVC sono: IVC measures (cm) (1.21), Dehydration (est 1 liter deficit) PD MEDICAL DECISION MAKING - ED course Complexity details: reviewed old records, reviewed results, re-evaluated patient, considered differential, d/w patient, d/w family ED course: 83-year-old male with history of pulmonary fibrosis who is recently been placed on a course of prednisone for exacerbation of lung disease has had improvement in his lung disease began to feel better and has overexerted himself. 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 He is found to be dehydrated and he is hydrated here in the emergency department with resolution of his symptoms and he does have a bump in his troponin into the indeterminate range and this appears to be demand ischemia. He had no changes in his his electrocardiogram and he has a falling troponin now. He is discharged to home with a diagnosis of dehydration and overexertion. I did not feel that his cough was related to pneumonia and I did not feel that he required antibiotic. He does indicate that his cough is improving day by day he is coughing up now clear phlegm and feeling improved. Departure - Departure Disposition: 01 Home, Self Care Clinical Impression: Dehydration Overexertion Qualifiers: Encounter type: initial encounter Qualified Code(s): X50.9XXA - Other and unspecified overexertion or strenuous movements or postures, initial encounter Condition: Stable Instructions: ED Dehydration, Tachycardia Follow-Up: Markel Hodges MD [Primary Care Provider] - Comments: Today it appears that you have been overactive and dehydrated at the same time and this has caused an acute injury to the heart. This is a reversible process and the recommendation is to reduce your level of activity and hydrate adequately.
[2018-11-02 13:22] LABS: BASOPHILS % (AUTO) 0.3 %; EOSINOPHILS # (AUTO) 0.1 10^3/uL (0.0-0.7); EOSINOPHILS % (AUTO) 0.8 %; HGB - HEMOGLOBIN 13.8 g/dL (14.0-18.0); LYMPHOCYTES # (AUTO) 2.3 10^3/uL (1.5-3.5); LYMPHOCYTES % (AUTO) 21.2 %; MEAN CORPUSCULAR HEMOGLOBIN 32.4 pg (27.0-31.0); MEAN CORPUSCULAR HGB CONC 33.4 g/dL (32.0-36.0); MEAN CORPUSCULAR VOLUME 96.9 fL (80.0-94.0); MEAN PLATELET VOLUME 9.8 fL (7.4-11.4); MONOCYTES # (AUTO) 0.9 10^3/uL (0.0-1.0); MONOCYTES % (AUTO) 7.8 %; NEUTROPHILS # (AUTO) 7.6 10^3/uL (1.5-6.6); NEUTROPHILS % (AUTO) 69.4 %; PLT - PLATELET COUNT 199 10^3/uL (130-450); RED BLOOD COUNT 4.26 10^6/uL (4.70-6.10); RED CELL DISTRIBUTION WIDTH 13.8 % (12.0-15.0); WHITE BLOOD COUNT 10.9 x10^3/uL (4.8-10.8)
[2018-11-02 13:36] LABS: ALBUMIN 4.2 g/dL (3.2-5.5); ALBUMIN/GLOBULIN RATIO 1.5 (1.0-2.2); BILIRUBIN,TOTAL 1.2 mg/dL (0.2-1.0); CALCIUM 9.2 mg/dL (8.5-10.3); CREATININE 0.8 mg/dL (0.6-1.2)
[2018-11-02] MEDS ORDERED: IPRATROPIUM/ALBUTEROL 3 ML NEB INH STA (13:38)
[2018-11-02] MEDS ORDERED: SODIUM CHLORIDE 0.9% 1,000 ML IV ONE (13:38)
--- NOTE | 2018-11-02 14:02 | XRAY Report ---
Reason: CP Procedure Date: 11/02/2018 Accession Number: [id number] / [id number] Procedure: XR - Chest 1 View X-Ray CPT Code: 11111 FULL RESULT: EXAM: CHEST RADIOGRAPHY EXAM DATE: 11/02/2018 01:44 PM. CLINICAL HISTORY: Chest pain COMPARISON: CHEST 2 VIEW 06/27/2017 9:42 AM CHEST W/ 09/06/2017 10:28 AM. TECHNIQUE: 1 view. FINDINGS: Lungs/Pleura: There is peripheral reticular opacity within the lungs. There is no definite evidence of acute infiltrate. No pneumothorax. Mediastinum: There is cardiomegaly. Patient has undergone median sternotomy. There is thoracic aortic calcification. Other: No acute bony abnormalities are seen. IMPRESSION: 1. There is mild cardiomegaly. Patient has undergone median sternotomy. There is mild thoracic aortic tortuosity. 2. Relatively stable peripheral reticular opacity within the lungs which is likely secondary to interstitial lung disease. 3. No acute intrathoracic plain film abnormality. RADIA
[2018-11-02 16:51] VITALS: BP 121/65
== END 2018-11-02 16:53 | disposition home or self-care (01) ==
LOC: ED 12:59
DX: E86.0 Dehydration (principal); J84.10 Pulmonary fibrosis, unspecified; I25.119 Atherosclerotic heart disease of native coronary artery with unspecified angina pectoris; I11.0 Hypertensive heart disease with heart failure; I50.9 Heart failure, unspecified; Z95.5 Presence of coronary angioplasty implant and graft; Z95.2 Presence of prosthetic heart valve; Z87.891 Personal history of nicotine dependence
CPT/HCPCS: 36415; 71045; 80053; 83690; 84484; 85025; 93005; 94640; 96360; 96361; 99284

== ENCOUNTER 2019-08-27 18:52 | Outpatient (CLI) | payer MEDICARE, BC | END 2019-08-27 18:53 | disposition home or self-care (01) | LOC: COV 18:52 | PROVIDERS: ATTEND Family Medicine | DX: R05 Cough (principal); R06.02 Shortness of breath; R06.2 Wheezing; Z20.828 Contact with and (suspected) exposure to other viral communicable diseases | CPT/HCPCS: 81599 ==

== ENCOUNTER 2019-08-28 14:43 | Outpatient (CLI) | payer MEDICARE, BC ==
--- NOTE | 2019-08-28 15:37 | CT Report ---
Reason: PERSISTANT RIGHT SIDE VILLARREAL Procedure Date: 08/28/2019 Accession Number: [id number] / [id number] Procedure: CT - HEAD WO CPT Code: Final Report FULL RESULT: EXAM: CT HEAD EXAM DATE: 08/28/2019 02:51 PM. CLINICAL HISTORY: PERSISTENT RIGHT SIDE VILLARREAL. COMPARISON: HEAD 04/07/2009 3:11 PM. TECHNIQUE: Multiaxial CT images were obtained from the foramen magnum to the vertex. Reformats: Sagittal and coronal. IV contrast: None. In accordance with CT protocol optimization, one or more of the following dose reduction techniques were utilized for this exam: automated exposure control, adjustment of mA and/or KV based on patient size, or use of iterative reconstructive technique. FINDINGS: Ventricles, sulci, and cisterns are mildly prominent compatible with mild age-related volume loss which is new. Mild periventricular and subcortical low attenuation is consistent with chronic ischemic microvascular changes, also new. No intracranial hemorrhage. No CT manifestation of acute infarct. No visible mass lesion on this noncontrast study. No extra-axial fluid collection. Mild chronic ethmoid air cell mucosal thickening, unchanged. Mild mucosal thickening at the inferior margin of the left maxillary sinus. The mastoid air cells are clear. The orbital structures are unremarkable. The calvarium and skull base are unremarkable. IMPRESSION: No acute intracranial abnormality. Chronic age-related senescent changes as above. RADIA
== END 2019-08-28 14:44 | disposition home or self-care (01) ==
LOC: DI 14:43
PROVIDERS: ATTEND Family Medicine
DX: R51 Headache (principal)
CPT/HCPCS: 70450

== ENCOUNTER 2019-10-31 14:33 | Emergency (ER) | payer MEDICARE, BC ==
[2019-10-31] MEDS ORDERED: BUFFERED LIDOCAINE 10 ML SYRINGE SUBQ STA (14:48)
[2019-10-31] MEDS ORDERED: ceFAZolin 1 GM VIAL IM STA (14:49)
[2019-10-31] MEDS ORDERED: TETANUS/DIPHTHERIA/PERTUSSIS 0.5 ML SYRINGE IM ONE (14:49)
--- NOTE | 2019-10-31 14:50 | ED Physician Documentation ---
PD HPI UPPER EXT INJURY - Stated complaint Stated Complaint: THUMB LAC - Chief complaint Chief Complaint: Laceration - History obtained from History obtained from: Patient (84-year-old gentleman with unknown tetanus status cut his left thumb at home on a table saw just prior to arrival.) Review of Systems Constitutional: reports: Reviewed and negative Cardiac: reports: Reviewed and negative Respiratory: reports: Reviewed and negative PD PAST MEDICAL HISTORY - Past Medical History Cardiovascular: Congestive heart failure, Hypertension, High cholesterol, Coronary artery disease, Angina, [place], Atrial fibrillation, Arrhythmia, Valve disorder, Other (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:  Cardiovascular: Coronary stent, Valve replacement (AVR replacement 2016), Cardiac catheterization HEENT: Cataracts, Tonsil/Adenoidectomy, Other Derm: Skin cancer surgery - Present Medications Home Medications: Ambulatory Orders Medication Instructions Recorded Confirmed Aspirin [Aspir 81] 81 mg PO DAILY 08/09/13 06/05/18 Atorvastatin Calcium [Lipitor] 40 mg PO DAILY 07/15/16 06/05/18 Acetaminophen 500 mg PO TID PRN 11/18/17 05/25/18 Cetirizine [ZyrTEC] 10 mg PO DAILY PRN 11/18/17 06/05/18 Cyclobenzaprine [Flexeril] 10 mg PO TID PRN 11/18/17 06/05/18 Senna [Senokot] 8.6 mg PO BID 11/18/17 05/25/18 Terazosin HCl 10 mg PO DAILY 11/18/17 06/05/18 raNITIdine HCl [Acid Control] 150 mg PO DAILY 11/18/17 06/05/18 Clobetasol Propionate/Emoll 15 gm TP DAILY 11/21/17 06/05/18 [Clobetasol Emollient 0.05% Crm] Nystatin Cream [Mycostatin Cream] 15 applic TOP DAILY 11/21/17 06/05/18 Bacitracin Zinc Oint 1 applic TOP BID #1 tube 10/31/19 Cephalexin [Keflex] 500 mg PO Q6H #28 capsule 10/31/19 Hydrocodone/Acetaminophen 1 - 2 each PO Q6H PRN #14 tablet 10/31/19 [Hydrocodon-Acetaminophen 5-325] - Allergies Allergies/Adverse Reactions: Allergies Allergy/AdvReac Type Severity Reaction Status Date / Time codeine Allergy Emesis Verified 10/31/19 15:03 fluoxetine HCl * AdvReac Severe urinary Verified 10/31/19 15:03 [From Prozac] retention Horse/Equine Containing AdvReac Severe Blindness Verified 10/31/19 15:03 Products erythromycin base AdvReac restrictive Verified 10/31/19 15:03 airway - Social History Does the pt smoke?: No Smoking Status: Former smoker (Quit 1985) Does the pt drink ETOH?: Yes Does the pt have substance abuse?: No - Immunizations Immunizations are current?: No Immunizations: TDAP >10years/unknown - POLST Patient has POLST: No PD ED PE NORMAL - Vitals Vital signs reviewed: Yes - General General: Alert and oriented X 3, No acute distress - Extremities Extremities: Other (He has an extensive laceration of the left thumb which goes from the ulnar surface just near the proximal mid nailbed and then around the tuft to the other side. There is some tissue loss especially on the radial side and it is a fairly complicated laceration. He is numb at the tip but nl cap refi) - Neuro Neuro: Alert and oriented X 3, Normal speech - Psych Psych: Normal mood, Normal affect Results - Vitals Vitals: Vital Signs - 24 hr 10/31/19 10/31/19 14:43 15:33 Temperature 36.6 C Heart Rate 81 80 Respiratory 18 16 Rate Blood Pressure 134/78 H 128/75 O2 Saturation 93 95 Oxygen O2 Source Room air - Rads (name of study) L thumb XR Radiology: EMP read contemporaneously (Displaced comminuted fracture of the distal phalanx) Procedures - Laceration (location) L thumb Length in cm: 3 Wound type: Stellate, Irregular, Contaminated (mild, some fat debrided) Neurovascular status: Motor intact. No: Sensory intact Tendon involvement: Tendon intact Anesthesia: Lidocaine 1%, With bicarb (dig block) Wound Preparation: Hibiclens, Irrigated copiously NS Skin layer closure: Nylon, Interrupted, Size #-0 - enter number (4-0) Other: Patient tolerated well, No complications, Neurovascular intact, Tetanus booster given Complexity: Intermediate - Splint (location) L thumb Splint applied by: Tech Type of splint: Metal foam finger splint PD MEDICAL DECISION MAKING - ED course ED course: 84-year-old gentleman with extensive distal thumb laceration with open fracture. Case discussed by phone with on-call orthopedics, Dr. Perrin who recommends simple closure and splinting and follow-up in the office. Departure - Departure Disposition: 01 Home, Self Care Clinical Impression: Laceration Open fracture of thumb Qualifiers: Encounter type: initial encounter Phalanx: distal Fracture alignment: displaced Laterality: left Qualified Code(s): S62.522B - Displaced fracture of distal phalanx of left thumb, initial encounter for open fracture Condition: Good Record reviewed to determine appropriate education?: Yes Instructions: ED Fx Finger Open, ED Laceration Hand Follow-Up: [facility] [Provider Group] Prescriptions: Bacitracin Zinc Oint 1 applic TOP BID #1 tube Hydrocodone/Acetaminophen [Hydrocodon-Acetaminophen 5-325] 1 - 2 each PO Q6H PRN #14 tablet PRN Reason: pain Cephalexin [Keflex] 500 mg PO Q6H #28 capsule Comments: As discussed, I expect good healing, but I do expect you to be numb at the tip indefinitely. You can keep the splint on and dry for a day or 2, after that you can wash briefly with soap and water and apply the prescription bacitracin ointment, a nonstick dressing, and replace the finger splint. You should follow-up with an orthopedic surgeon on or about Tuesday, if you decide to follow-up with Dr. Armstrong off the [place] we are providing a CD with your x-rays on it so that she is not starting from scratch. Return if worse. Do not drink or drive while taking narcotic pain medication. Note that many narcotic pain relievers also contain Tylenol/acetaminophen. Please ensure that your total dose of acetaminophen from all sources does not exceed 3 g (3000 mg) per day. You may get constipated while on this medication. Take a stool softener such as Colace twice a day while you are on it. Also add an [id number]-[id number] laxative such as senna or MiraLAX on any day that you do not have a bowel movement. If you received a narcotic pain medication or sedative while in the emergency department, do not drive for the next 24 hours.
--- NOTE | 2019-10-31 15:28 | XRAY Report ---
PROCEDURE: Finger(s) LT INDICATIONS: thumb inj TECHNIQUE: 3 views of the first finger(s) acquired. COMPARISON: None FINDINGS: Bones: Acute slightly comminuted fracture involving the volar aspect of mid shaft first distal phalan x is seen with slight dorsal angulation and minimal dorsal and medial displacement at fracture site. No other fracture or dislocation is seen. Osteoarthritic changes are noted throughout left thumb. Soft tissues: Extensive soft tissue swelling and numerous fractured fragments are seen in the volar a nd radial aspect of left thumb at the level of first distal phalanx. No radiopaque foreign body is se en. IMPRESSION: Laceration and comminuted fracture involving the volar and radial aspect of left distal phalangeal sh aft with slight displacement and angulation at fracture site. Reviewed by: Sunil Hernández MD on 10/31/2019 3:26 PM PDT Approved by: Sunil Hernández MD on 10/31/2019 3:26 PM PDT Station ID: [id number]
[2019-10-31 16:27] VITALS: BP 125/78
== END 2019-10-31 16:00 | disposition home or self-care (01) ==
LOC: ED 14:33
DX: S62.522B Displaced fracture of distal phalanx of left thumb, initial encounter for open fracture (principal); W29.8XXA Contact with other powered hand tools and household machinery, initial encounter; Y93.89 Activity, other specified; Y92.009 Unspecified place in unspecified non-institutional (private) residence as the place of occurrence of the external cause; I10 Essential (primary) hypertension; Z87.891 Personal history of nicotine dependence
CPT/HCPCS: 12042; 73140; 90471

== ENCOUNTER 2020-01-29 13:56 | Outpatient (CLI) | payer MEDICARE, BC | END 2020-01-29 13:57 | disposition home or self-care (01) | LOC: COV 13:56 | PROVIDERS: ATTEND Family Medicine | DX: R50.9 Fever, unspecified (principal); R05 Cough; R06.02 Shortness of breath; M79.10 Myalgia, unspecified site; R53.83 Other fatigue; R09.81 Nasal congestion; R11.2 Nausea with vomiting, unspecified; Z20.828 Contact with and (suspected) exposure to other viral communicable diseases ==

== ENCOUNTER 2020-02-01 06:58 | Outpatient (CLI) | payer MEDICARE, BC ==
--- NOTE | 2020-02-04 06:12 | Ultrasound Report ---
PROCEDURE: Testicle w/Doppler INDICATIONS: iNCREASED PX GROIN/RT TECHNIQUE: Real-time scanning was performed of the scrotum and testicles, with image documentation. Color and p ulse Doppler interrogation was performed of both testicles. COMPARISON: 09/13/2017 similar ultrasound. FINDINGS: Right: Testicle is normal in size at 2.3 x 3.1 x 4.4 cm, and homogenous in echotexture except for mi ld tubular ectasia. Epididymis is normal in overall size and morphology. There is a small hydrocele with internal debris, also previously the case. No varicoceles. Overlying scrotal skin is normal in thickness. Left: Testicle is normal in size at 2.1 x 3.0 x 4.5 cm, and homogeneous in echotexture with mild tub ular ectasia.. Epididymis is normal in overall size and morphology. There is a mild hydrocele with i nternal debris as was previously the case, and no varicoceles. Overlying scrotal skin is normal in t hickness. Doppler: Color and pulse Doppler demonstrate normal and symmetric arterial flow in both testicles. IMPRESSION: Bilateral mild hydroceles with a small amount of internal debris, no evidence of asymmetric inflammat ion involving the testis or epididymis. There is a 5 mm epididymal head cyst on the right and mild bi lateral tubular ectasia involving the rete testis. A definite source of asymmetric increasing right g roin pain is not identified. Reviewed by: Dominick Parra MD on 02/01/2020 10:16 AM PDT Approved by: Dominick Parra MD on 02/01/2020 10:16 AM PDT Station ID: [id number]
== END 2020-02-01 06:59 | disposition home or self-care (01) ==
LOC: DI 06:58
PROVIDERS: ATTEND Urology
DX: N50.82 Scrotal pain (principal); N50.3 Cyst of epididymis; N43.3 Hydrocele, unspecified
CPT/HCPCS: 76870; 93975

== ENCOUNTER 2020-05-16 12:28 | Emergency (ER) | payer MEDICARE, BC ==
[2020-05-16] MEDS ORDERED: diltiaZEM INJ 5 MG/ML VIAL IVP STA (12:41)
--- NOTE | 2020-05-16 13:08 | ED Physician Documentation ---
PD HPI CHEST PAIN - Stated complaint Stated Complaint: CP - Chief complaint Chief Complaint: Cardiac - History obtained from History obtained from: Patient - History of Present Illness Quality: Pressure, Tightness Location: Substernal, Left chest Radiation: Left upper extremity Associated symptoms: Nausea, Feeling faint / dizzy, General Weakness, Palpitations. No: Vomiting, Cough Recently seen: Not recently seen - Additional information Additional information: Patient is an 85-year-old male who presents to the emergency department with chest pain since this morning. Is been ongoing for the past 3 hours. He states that his who is a retired nurse, listened to his chest and told him that he was back in atrial fibrillation. Heart rate was irregular. He has had atrial fibrillation in the past. Has a history of cardiac stents and valve replacemen t. Valve replacement was 2017, aortic valve. He is followed by cardiology at . Dr. Walker. Patient also states that he has pulmonary fibrosis and is followed by pulmonary for this. No shortness of breath currently. He does not know what medications he takes at home, but he states he does know that one is $9000 a month. He states that he gets his prescriptions from a mail order pharmacy. Review of Systems Constitutional: denies: Fever, Chills Nose: denies: Rhinorrhea / runny nose, Congestion Throat: denies: Sore throat Cardiac: reports: Chest pain / pressure, Palpitations Respiratory: denies: Cough GI: denies: Vomiting, Diarrhea Skin: denies: Rash Musculoskeletal: denies: Neck pain, Back pain Neurologic: denies: Headache PD PAST MEDICAL HISTORY - Past Medical History Cardiovascular: Congestive heart failure, Hypertension, High cholesterol, Coronary artery disease, Angina, [place], Atrial fibrillation, Arrhythmia, Valve disorder, Other (Saw compensator in December, patient reported no concerns. 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:  Cardiovascular: Coronary stent, Valve replacement (AVR replacement 2016), Cardiac catheterization HEENT: Cataracts, Tonsil/Adenoidectomy, Other Derm: Skin cancer surgery - Present Medications Home Medications: Ambulatory Orders Medication Instructions Recorded Confirmed Aspirin [Aspir 81] 81 mg PO DAILY 08/09/13 06/05/18 Atorvastatin Calcium [Lipitor] 40 mg PO DAILY 07/15/16 06/05/18 Acetaminophen 500 mg PO TID PRN 11/18/17 05/25/18 Cetirizine [ZyrTEC] 10 mg PO DAILY PRN 11/18/17 06/05/18 Cyclobenzaprine [Flexeril] 10 mg PO TID PRN 11/18/17 06/05/18 Senna [Senokot] 8.6 mg PO BID 11/18/17 05/25/18 Terazosin HCl 10 mg PO DAILY 11/18/17 06/05/18 raNITIdine HCl [Acid Control] 150 mg PO DAILY 11/18/17 06/05/18 Clobetasol Propionate/Emoll 15 gm TP DAILY 11/21/17 06/05/18 [Clobetasol Emollient 0.05% Crm] Nystatin Cream [Mycostatin Cream] 15 applic TOP DAILY 11/21/17 06/05/18 Bacitracin Zinc Oint 1 applic TOP BID #1 tube 10/31/19 Hydrocodone/Acetaminophen 1 - 2 each PO Q6H PRN #14 tablet 10/31/19 [Hydrocodon-Acetaminophen 5-325] cephALEXin [Keflex] 500 mg PO Q6H #28 capsule 10/31/19 - Allergies Allergies/Adverse Reactions: Allergies Allergy/AdvReac Type Severity Reaction Status Date / Time codeine Allergy Emesis Verified 05/16/20 12:30 fluoxetine HCl * AdvReac Severe urinary Verified 05/16/20 12:30 [From Prozac] retention Horse/Equine Containing AdvReac Severe Blindness Verified 05/16/20 12:30 Products erythromycin base AdvReac restrictive Verified 05/16/20 12:30 airway - Social History Does the pt smoke?: No Smoking Status: Former smoker (Quit 1985) Does the pt drink ETOH?: Yes Does the pt have substance abuse?: No - Immunizations Immunizations are current?: No Immunizations: TDAP >10years/unknown - POLST Patient has POLST: No PD ED PE NORMAL - Vitals Vital signs reviewed: Yes - General General: Alert and oriented X 3, No acute distress, Well developed/nourished - HEENT HEENT: PERRL, Moist mucous membranes - Neck Neck: Supple, no meningeal sign - Cardiac Cardiac: Other (tachycardic. irregular) - Respiratory Respiratory: No respiratory distress, Clear bilaterally - Abdomen Abdomen: Soft, Non tender, Non distended - Derm Derm: Warm and dry, No rash - Extremities Extremities: No calf tenderness / cord - Neuro Neuro: Alert and oriented X 3 - Psych Psych: Normal mood, Normal affect Results - Vitals Vitals: Vital Signs - 24 hr 05/16/20 05/16/20 05/16/20 12:31 13:00 13:15 Temperature 36.3 C L Heart Rate 145 H 136 H 128 H Respiratory 26 H 22 20 Rate Blood Pressure 115/86 H 138/91 H 118/78 O2 Saturation 96 96 98 05/16/20 05/16/20 05/16/20 13:20 13:25 13:28 Temperature 36.3 C L Heart Rate 108 H 101 H 72 Respiratory 20 20 20 Rate Blood Pressure 109/71 121/62 121/62 O2 Saturation 98 96 96 05/16/20 05/16/20 05/16/20 13:35 13:45 14:00 Temperature Heart Rate 72 74 68 Respiratory 18 18 18 Rate Blood Pressure 107/63 113/53 L 101/61 O2 Saturation 96 95 95 05/16/20 05/16/20 14:13 15:00 Temperature Heart Rate 68 61 Respiratory 18 18 Rate Blood Pressure 101/61 115/66 O2 Saturation 97 95 Oxygen O2 Source Room air - EKG (time done) 1236 Rate: Rate (enter#) (148) Rhythm: Atrial fibrillation (RVR) [place]: Normal QRS: Normal Ischemia: Non specific changes (rate related changes) 1439 Rate: Rate (enter#) (63) Rhythm: NSR [place]: Normal Intervals: Normal [place] QRS: Normal Ischemia: Normal ST segments - Labs Labs: Laboratory Tests 05/16/20 05/16/20 05/16/20 13:05 13:05 13:05 WBC 7.8 RBC 4.54 L Hgb 14.9 Hct 45.1 MCV 99.3 H MCH 32.8 H MCHC 33.0 RDW 12.9 Plt Count 191 MPV 9.6 Neut # (Auto) 5.0 Lymph # (Auto) 1.9 [place] # (Auto) 0.5 Eos # (Auto) 0.3 Baso # (Auto) 0.1 Absolute Nucleated RBC 0.00 Nucleated RBC % 0.0 Sodium 141 Potassium 3.3 L Chloride 104 Carbon Dioxide 25 Anion Gap 12.0 BUN 13 Creatinine 0.9 Estimated GFR (MDRD) 80 L Glucose 121 H Calcium 9.3 Total Bilirubin 1.0 AST 19 ALT 18 Alkaline Phosphatase 57 Troponin I High Sens 10.6 Total Protein 7.0 Albumin 4.2 Globulin 2.8 Albumin/Globulin Ratio 1.5 Lipase 33 - Rads (name of study) cxr Radiology: Prelim report reviewed, EMP read contemporaneously, See rad report PD MEDICAL DECISION MAKING - ED course Complexity details: reviewed results, re-evaluated patient, considered differential (No ST elevation [place], no aortic dissection, no PE, no tension pneumothorax, no aortic aneurysm), d/w patient ED course: Patient converted out of atrial fibrillation with a single dose of 10 mg of diltiazem. Stayed in sinus rhythm. Symptoms resolved. No further chest pain. Negative high-sensitivity troponin. Discussed the case with his compensator Dr. Walker, who recommends following up in the office. He states his office will contact the patient tomorrow to see how he was doing. Continue current medications. Patient counseled regarding signs and symptoms for which I believe and urgent re-evaluation would be necessary. Patient with good understanding of and agreement to plan and is comfortable going home at this time This document was made in part using voice recognition software. While efforts are made to proofread this document, sound alike and grammatical errors may o ccur. Bilateral lung interstitial thickening which has progressed compared to 11/02/2018. Finding could represent pulmonary edema, atypical/viral pneumonia or progression of chronic interstitial lung disease. Departure - Departure Disposition: 01 Home, Self Care Clinical Impression: Atrial fibrillation with RVR Chest pain Qualifiers: Chest pain type: unspecified Qualified Code(s): R07.9 - Chest pain, unspecified Condition: Good Instructions: ED Afib Follow-Up: Elder Guevara MD [Primary Care Provider] - Bernardino Vail MD [Physician No Access] - Comments: Return if you worsen. Follow up with your doctor for further care. Dr. Walker's staff will call you tomorrow. Continue your medications at home. Discharge Date/Time: 05/16/20 15:10
--- NOTE | 2020-05-16 13:11 | XRAY Report ---
PROCEDURE: Chest 1 View X-Ray INDICATIONS: Chest pain TECHNIQUE: One view of the chest was acquired. COMPARISON: 11/02/2018 and 07/16/2016 FINDINGS: Surgical changes and devices: Median sternotomy wires. Cystectomy clips. Lungs and pleura: No pleural effusions or pneumothorax. Interstitial thickening most pronounced the lung periphery has progressed in the interval since prior exam obtained 11/02/2018. Mediastinum: Mediastinal contours appear normal. Heart is mildly enlarged Bones and chest wall: No suspicious bony lesions. Overlying soft tissues appear unremarkable. IMPRESSION: Bilateral lung interstitial thickening which has progressed compared to 11/02/2018. Finding could repr esent pulmonary edema, atypical/viral pneumonia or progression of chronic interstitial lung disease. Reviewed by: Susi Sharpe MD, PhD on 05/16/2020 12:10 PM [facility] [place] Approved by: Susi Sharpe MD, PhD on 05/16/2020 12:10 PM [facility] [place] Station ID: [id number]
[2020-05-16 13:40] LABS: BASOPHILS # (AUTO) 0.1 10^3/uL (0.0-0.1); BASOPHILS % (AUTO) 0.6 %; EOSINOPHILS # (AUTO) 0.3 10^3/uL (0.0-0.7); EOSINOPHILS % (AUTO) 3.6 %; HGB - HEMOGLOBIN 14.9 g/dL (14.0-18.0); LYMPHOCYTES # (AUTO) 1.9 10^3/uL (1.5-3.5); LYMPHOCYTES % (AUTO) 24.2 %; MEAN CORPUSCULAR HEMOGLOBIN 32.8 pg (27.0-31.0); MEAN CORPUSCULAR VOLUME 99.3 fL (80.0-94.0); MEAN PLATELET VOLUME 9.6 fL (7.4-11.4); MONOCYTES # (AUTO) 0.5 10^3/uL (0.0-1.0); MONOCYTES % (AUTO) 6.7 %; NEUTROPHILS % (AUTO) 64.8 %; PLT - PLATELET COUNT 191 10^3/uL (130-450); RED BLOOD COUNT 4.54 10^6/uL (4.70-6.10); RED CELL DISTRIBUTION WIDTH 12.9 % (12.0-15.0); WHITE BLOOD COUNT 7.8 x10^3/uL (4.8-10.8)
[2020-05-16 13:46] LABS: ALBUMIN 4.2 g/dL (3.2-5.5); ALBUMIN/GLOBULIN RATIO 1.5 (1.0-2.2); CALCIUM 9.3 mg/dL (8.5-10.3); CREATININE 0.9 mg/dL (0.6-1.2)
[2020-05-16 17:46] VITALS: BP 115/66
== END 2020-05-16 15:10 | disposition home or self-care (01) ==
LOC: ED 12:28
DX: I48.91 Unspecified atrial fibrillation (principal); R07.89 Other chest pain; J84.10 Pulmonary fibrosis, unspecified; I25.10 Atherosclerotic heart disease of native coronary artery without angina pectoris; Z95.5 Presence of coronary angioplasty implant and graft; I10 Essential (primary) hypertension; Z95.2 Presence of prosthetic heart valve; Z79.82 Long term (current) use of aspirin; Z87.891 Personal history of nicotine dependence
CPT/HCPCS: 36415; 80053; 83690; 84484; 85025; 93005; 96374; 99284

== ENCOUNTER 2020-11-18 11:53 | Emergency (ER) | payer MEDICARE, BC ==
--- NOTE | 2020-11-18 12:25 | ED Physician Documentation ---
History of Present Illness - Stated complaint Stated Complaint: LT FACE/BACK PX - Chief complaint Chief Complaint: Cardiac - History obtained from History obtained from: Patient, Family - History of Present Illness Timing: Today Pain level max: 5 Pain level now: 3 - Additonal information Additional information: Patient is an 85-year-old male, history of 2 cardiac stents in the past as well as an aortic valve replacement. At the stents were in 2013, the valve was in 2017. He is followed by cardiology at [facility] and [place] in [place]. He states that today he felt a pain in the left side of his jaw, near his molars. He states that this occurred at about 945 this morning. He went to the store and in the store somebody asked him if he was okay and if he needed help. The patient states that he was not feeling well, but made it out to his car. He went home and saw his , still was not feeling well so came in for evaluation. He has a history of pulmonary fibrosis. Currently the symptoms have resolved. He states the pain also spread down his neck into the left upper chest and left back. Did not go into the left arm. No fevers. No chills. No cough. No nausea or vomiting. Review of Systems Ten Systems: 10 systems reviewed and negative Constitutional: denies: Fever, Chills Throat: denies: Sore throat Cardiac: denies: Palpitations Respiratory: denies: Dyspnea, Cough, Wheezing GI: denies: Vomiting, Diarrhea Skin: denies: Rash Musculoskeletal: denies: Neck pain, Back pain Neurologic: denies: Headache PD PAST MEDICAL HISTORY - Past Medical History Cardiovascular: Congestive heart failure, Hypertension, High cholesterol, Coronary artery disease, Angina, [place], Atrial fibrillation, Arrhythmia, Valve disorder, Other Respiratory: Asthma, Shortness of breath, Sleep apnea, Other Neuro: None Endocrine/Autoimmune: None GI: GERD, GI bleed, Colon polyps, Hemorrhoids, Cholelithiasis : Benign prostate hypertrophy, Retention HEENT: Chronic vision loss, Chronic sinusitis, Chronic hearing loss Psych: Depression, Anxiety Musculoskeletal: Osteoarthritis, Chronic back pain Derm: Other - Past Surgical History Past Surgical History: Yes General: Cholecystectomy, Appendectomy, Colonoscopy, Other Ortho: Hip replacement, 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:  Cardiovascular: Coronary stent, Valve replacement, Cardiac catheterization HEENT: Cataracts, Tonsil/Adenoidectomy, Other Derm: Skin cancer surgery - Present Medications Home Medications: Ambulatory Orders Medication Instructions Recorded Confirmed Aspirin [Aspir 81] 81 mg PO DAILY 08/09/13 11/18/20 Atorvastatin Calcium [Lipitor] 40 mg PO DAILY 07/15/16 11/18/20 Acetaminophen 500 mg PO TID PRN 11/18/17 11/18/20 Cetirizine [ZyrTEC] 10 mg PO DAILY PRN 11/18/17 11/18/20 Cyclobenzaprine [Flexeril] 10 mg PO TID PRN 11/18/17 11/18/20 Bacitracin Zinc Oint 1 applic TOP BID #1 tube 10/31/19 11/18/20 cephALEXin [Keflex] 500 mg PO Q6H #28 capsule 10/31/19 11/18/20 Albuterol Sulfate [Proair Hfa 1 - 2 puffs INH Q4H PRN 08/22/20 11/18/20 Inhaler] Pgxxku-Wuwwfhl-Tupn-L-Cysteine 1 tab PO DAILY 08/22/20 11/18/20 Doxycycline Hyclate 100 mg PO BID 08/22/20 11/18/20 Finasteride [Proscar] 5 mg PO DAILY 08/22/20 11/18/20 Fludrocortisone [Florinef] 0.1 mg PO DAILY 08/22/20 11/18/20 Fluorouracil [Carac] 1 applic TP DAILY 08/22/20 11/18/20 Montelukast [Singulair] 10 mg PO QPM 08/22/20 11/18/20 Niacinamide 500 mg PO DAILY 08/22/20 11/18/20 Nitroglycerin [Nitrostat] 0.4 mg SL Q5MIN PRN 08/22/20 11/18/20 Pantoprazole [Protonix] 40 mg PO BID 08/22/20 11/18/20 Pirfenidone [Esbriet] 801 mg PO TID 08/22/20 11/18/20 Potassium Citrate [Potassium 10 meq PO DAILY 08/22/20 11/18/20 Citrate ER] Sodium Chloride [Salt Tab] 1 gm PO DAILY 08/22/20 11/18/20 Tamsulosin [Flomax] 0.8 mg PO DAILY 08/22/20 11/18/20 Tizanidine HCl 2 mg PO PRN PRN 08/22/20 11/18/20 Vitamin B Complex 1 each PO DAILY 08/22/20 11/18/20 diltiaZEM CD [Cardizem Cd] 180 mg PO DAILY 08/22/20 11/18/20 traMADol [Ultram] 50 mg PO Q8HR PRN 08/22/20 11/18/20 - Allergies Allergies/Adverse Reactions: Allergies Allergy/AdvReac Type Severity Reaction Status Date / Time codeine Allergy Emesis Verified 11/18/20 12:10 fluoxetine HCl * AdvReac Severe urinary Verified 11/18/20 12:10 [From Prozac] retention Horse/Equine Containing AdvReac Severe Blindness Verified 11/18/20 12:10 Products erythromycin base AdvReac restrictive Verified 11/18/20 12:10 airway - Social History Does the pt smoke?: No Smoking Status: Never smoker Does the pt drink ETOH?: Yes Does the pt have substance abuse?: No - Immunizations Immunizations are current?: No Immunizations: TDAP >10years/unknown - POLST Patient has POLST: No PD ED PE NORMAL - Vitals Vital signs reviewed: Yes - General General: Alert and oriented X 3, No acute distress - HEENT HEENT: Moist mucous membranes - Neck Neck: Supple, no meningeal sign, No adenopathy, No JVD, No bruit - Cardiac Cardiac: RRR - Respiratory Respiratory: No respiratory distress, Clear bilaterally - Abdomen Abdomen: Soft, Non tender, Non distended - Derm Derm: Warm and dry - Extremities Extremities: No edema, No calf tenderness / cord - Neuro Neuro: Alert and oriented X 3, director of people 2-12 intact, No motor deficit, No sensory deficit, Normal speech Eye Opening: Spontaneous Motor: Obeys Commands Verbal: Oriented GCS Score: 15 - Psych Psych: Normal mood, Normal affect Results - Vitals Vitals: Vital Signs - 24 hr 11/18/20 11/18/20 11/18/20 11:57 12:30 13:00 Temperature 36.9 C Heart Rate 69 66 65 Respiratory 16 23 22 Rate Blood Pressure 129/68 130/65 117/57 L O2 Saturation 96 96 96 11/18/20 11/18/20 11/18/20 14:18 14:30 15:00 Temperature Heart Rate 55 L 56 L 53 L Respiratory 18 13 16 Rate Blood Pressure 129/66 139/72 H 138/68 H O2 Saturation 95 96 95 Oxygen O2 Source Nasal cannula Oxygen Flow Rate 3 - EKG (time done) 1208 Rate: Rate (enter#) (66) Rhythm: NSR [place]: Normal Intervals: Normal [place] QRS: Normal, LVH - Labs Labs: Laboratory Tests 11/18/20 11/18/20 11/18/20 12:32 12:32 12:32 WBC 7.8 RBC 3.92 L Hgb 12.8 L Hct 39.3 L MCV 100.3 H MCH 32.7 H MCHC 32.6 RDW 13.2 Plt Count 149 MPV 9.5 Neut # (Auto) 5.5 Lymph # (Auto) 1.6 [place] # (Auto) 0.4 Eos # (Auto) 0.2 Baso # (Auto) 0.0 Absolute Nucleated RBC 0.00 Nucleated RBC % 0.0 Sodium 142 Potassium 3.5 Chloride 111 Carbon Dioxide 24 Anion Gap 7.0 BUN 16 Creatinine 0.8 Estimated GFR (MDRD) 92 Glucose 148 H Calcium 8.8 Total Bilirubin 0.9 AST 17 ALT 13 Alkaline Phosphatase 42 Troponin I High Sens 9.2 Total Protein 6.2 L Albumin 3.7 Globulin 2.5 Albumin/Globulin Ratio 1.5 Lipase 25 - Rads (name of study) CT angio chest Radiology: Prelim report reviewed, EMP read contemporaneously, See rad report PD MEDICAL DECISION MAKING - ED course Complexity details: reviewed results, re-evaluated patient, considered differential (No ST elevation [place], no aortic dissection, no PE, no tension pneumothorax, no aortic aneurysm), d/w patient ED course: No acute findings on CT angio of the chest, chest x-ray, EKG, laboratory testing. Negative high-sensitivity troponin after greater than 4 hours from onset of symptoms. Patient asymptomatic here. Patient is well-appearing, nontoxic. Unclear etiology of his symptoms. No evidence of PE or aortic dissection. 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 Patient counseled regarding signs and symptoms for which I believe and urgent re-evaluation would be necessary. Patient with good understanding of and agreement to plan and is comfortable going home at this time CT angio chest 1. No evidence of central pulmonary embolism, with evaluation of distal subsegmental branches is limited in the lung bases due to motion artifact. There is enlargement of the pulmonary arteries suggestive of pulmonary arterial hypertension. 2. Findings compatible with chronic interstitial lung disease redemonstrated with increased septal thickening, groundglass opacities and bronchial wall thickening suggestive of superimposed pulmonary edema. 3. Increase in size of a pleural-based nodule in the right upper lobe anteriorly measuring up to 1.2 cm. The finding is indeterminate but a neoplastic process cannot be excluded. Consider further evaluation with PET/CT or follow-up in 3-6 months to demonstrate stability. 4. Mildly enlarged mediastinal lymph nodes are nonspecific and can are likely reactive but the differential includes metastatic disease. Recommend attention on follow-up. CXR: 1. Peripheral reticular interstitial opacities redemonstrated compatible with chronic interstitial lung disease. Findings appear progressed compared to the prior studies. 2. No definite acute consolidation. Departure - Departure Disposition: 01 Home, Self Care Clinical Impression: Chest pain Qualifiers: Chest pain type: unspecified Qualified Code(s): R07.9 - Chest pain, unspecified Condition: Good Instructions: ED Chest Pain Atypical Unkn Cause Follow-Up: Elder Guevara MD [Primary Care Provider] - Within 3 Days Comments: The cause of your symptoms is unclear today. Please follow-up with your doctor for further care. You should follow-up with your flatbed press operator as well as they may want to perform a cardiac stress test on you. Return if you worsen. 3. Increase in size of a pleural-based nodule in the right upper lobe anteriorly measuring up to 1.2 cm. The finding is indeterminate but a neoplastic process cannot be excluded. Consider further evaluation with PET/CT or follow-up in 3-6 months to demonstrate stability. CT angio chest: FINDINGS: Image quality: There is mild motion artifact. Pulmonary arteries: Pulmonary arteries demonstrate no intraluminal filling defects to suggest central pulmonary embolism. Evaluation of distal subsegmental branches is slightly limited by motion artifact in the lung bases. There is enlargement of the pulmonary arteries, with the main pulmonary artery measuring up to 3.7 cm suggestive of pulmonary arterial hypertension. Lungs and pleura: There are bilateral subpleural reticular opacities with a basilar predominance as well as scattered peripheral areas of groundglass opacity redemonstrated consistent with chronic interstitial lung disease. In addition, there is increased septal thickening and indistinct groundglass opacities as well as increased bronchial wall thickening suggestive of superimposed pulmonary edema. In the anterior right upper lobe, there is a pleural-based nodule measuring up to 1.2 cm on series 7 image 128 which appears increased in size compared to the prior studies. No pleural effusions or pneumothorax. Central and peripheral airways are patent. Mediastinum: Heart size is mildly enlarged, without pericardial effusion. There are moderate to severe coronary arterial vascular calcifications. There is a prosthetic aortic valve. Thoracic aorta is normal in caliber and enhancement. There are mildly enlarged mediastinal lymph nodes, with a financial sales representative precarinal node measuring up to 1.2 cm. An azygoesophageal node measures up to 1.3 cm. Esophagus is normal in caliber, with a small hiatal hernia. Bones and chest wall: No suspicious bony lesions. There is osteopenia of the visualized osseous structures. There are multilevel minimal compression deformities within the thoracic spine. These appear similar to the prior study. No axillary or supraclavicular adenopathy. The thyroid demonstrates no discrete nodules. Abdomen: Visualized upper abdomen demonstrates no definite acute abnormalities. IMPRESSION: 1. No evidence of central pulmonary embolism, with evaluation of distal subsegmental branches is limited in the lung bases due to motion artifact. There is enlargement of the pulmonary arteries suggestive of pulmonary arterial hypertension. 2. Findings compatible with chronic interstitial lung disease redemonstrated with increased septal thickening, groundglass opacities and bronchial wall thickening suggestive of superimposed pulmonary edema. 3. Increase in size of a pleural-based nodule in the right upper lobe anteriorly measuring up to 1.2 cm. The finding is indeterminate but a neoplastic process cannot be excluded. Consider further evaluation with PET/CT or follow-up in 3-6 months to demonstrate stability. 4. Mildly enlarged mediastinal lymph nodes are nonspecific and can are likely reactive but the differential includes metastatic disease. Recommend attention on follow-up. Discharge Date/Time: 11/18/20 15:37
[2020-11-18] MEDS ORDERED: IOPAMIDOL-300 100 ML VIAL ONE (12:27)
[2020-11-18 12:49] LABS: BASOPHILS % (AUTO) 0.5 %; EOSINOPHILS # (AUTO) 0.2 10^3/uL (0.0-0.7); EOSINOPHILS % (AUTO) 2.5 %; HCT - HEMATOCRIT 39.3 % (42.0-52.0); HGB - HEMOGLOBIN 12.8 g/dL (14.0-18.0); LYMPHOCYTES # (AUTO) 1.6 10^3/uL (1.5-3.5); LYMPHOCYTES % (AUTO) 20.6 %; MEAN CORPUSCULAR HEMOGLOBIN 32.7 pg (27.0-31.0); MEAN CORPUSCULAR HGB CONC 32.6 g/dL (32.0-36.0); MEAN CORPUSCULAR VOLUME 100.3 fL (80.0-94.0); MEAN PLATELET VOLUME 9.5 fL (7.4-11.4); MONOCYTES # (AUTO) 0.4 10^3/uL (0.0-1.0); MONOCYTES % (AUTO) 5.7 %; NEUTROPHILS # (AUTO) 5.5 10^3/uL (1.5-6.6); NEUTROPHILS % (AUTO) 70.4 %; PLT - PLATELET COUNT 149 10^3/uL (130-450); RED BLOOD COUNT 3.92 10^6/uL (4.70-6.10); RED CELL DISTRIBUTION WIDTH 13.2 % (12.0-15.0); WHITE BLOOD COUNT 7.8 x10^3/uL (4.8-10.8)
[2020-11-18 13:05] LABS: ALBUMIN 3.7 g/dL (3.2-5.5); ALBUMIN/GLOBULIN RATIO 1.5 (1.0-2.2); BILIRUBIN,TOTAL 0.9 mg/dL (0.2-1.0); CALCIUM 8.8 mg/dL (8.5-10.3); CREATININE 0.8 mg/dL (0.6-1.2); POTASSIUM 3.5 mmol/L (3.5-5.0); TOTAL PROTEIN 6.2 g/dL (6.7-8.2)
--- NOTE | 2020-11-18 13:17 | XRAY Report ---
PROCEDURE: Chest 1 View X-Ray INDICATIONS: Chest Pain TECHNIQUE: One view of the chest was acquired. COMPARISON: 05/16/2020. FINDINGS: Surgical changes and devices: Postsurgical changes are redemonstrated within the mediastinum. Lungs and pleura: The medial lung apices are partially excluded by the patient's neck soft tissues. No definite pneumothorax. No pleural effusions. Bilateral peripheral reticular interstitial opacities are redemonstrated. There is soft tissue fullness in the right hilum which appears similar to the pr ior studies. Mediastinum: Mediastinal contours appear unchanged. Heart size is mildly enlarged. Bones and chest wall: No suspicious bony lesions. Overlying soft tissues appear unremarkable. IMPRESSION: 1. Peripheral reticular interstitial opacities redemonstrated compatible with chronic interstitial doug ng disease. Findings appear progressed compared to the prior studies. 2. No definite acute consolidation. Reviewed by: Kemal Ahumada MD on 11/18/2020 1:16 PM PDT Approved by: Kemal Ahumada MD on 11/18/2020 1:16 PM PDT Station ID: [id number]
--- NOTE | 2020-11-18 14:47 | CT Report ---
PROCEDURE: ANGIO CHEST W/WO INDICATIONS: L sided chest pain CONTRAST: IV CONTRAST: Optiray 320 ml: 80 PO CONTRAST: *NO PO CONTRAST TECHNIQUE: After the administration of intravenous contrast, images were acquired from the pulmonary apices to t he posterior costophrenic angles. 3-dimensional maximum intensity projection (MIP) coronal and sagit majo reformats were then acquired through the thorax. For radiation dose reduction, the following was used: automated exposure control, adjustment of mA and/or kV according to patient size. COMPARISON: Chest CT 09/06/2017, CT chest angiogram 07/15/2016. FINDINGS: Image quality: There is mild motion artifact. Pulmonary arteries: Pulmonary arteries demonstrate no intraluminal filling defects to suggest centra l pulmonary embolism. Evaluation of distal subsegmental branches is slightly limited by motion artifa ct in the lung bases. There is enlargement of the pulmonary arteries, with the main pulmonary artery measuring up to 3.7 cm suggestive of pulmonary arterial hypertension. Lungs and pleura: There are bilateral subpleural reticular opacities with a basilar predominance as well as scattered peripheral areas of groundglass opacity redemonstrated consistent with chronic inte rstitial lung disease. In addition, there is increased septal thickening and indistinct groundglass o pacities as well as increased bronchial wall thickening suggestive of superimposed pulmonary edema. I n the anterior right upper lobe, there is a pleural-based nodule measuring up to 1.2 cm on series 7 i mage 128 which appears increased in size compared to the prior studies. No pleural effusions or pneum othorax. Central and peripheral airways are patent. Mediastinum: Heart size is mildly enlarged, without pericardial effusion. There are moderate to chandler re coronary arterial vascular calcifications. There is a prosthetic aortic valve. Thoracic aorta is n ormal in caliber and enhancement. There are mildly enlarged mediastinal lymph nodes, with a represen tative precarinal node measuring up to 1.2 cm. An azygoesophageal node measures up to 1.3 cm. Esophag us is normal in caliber, with a small hiatal hernia. Bones and chest wall: No suspicious bony lesions. There is osteopenia of the visualized osseous str uctures. There are multilevel minimal compression deformities within the thoracic spine. These appear similar to the prior study. No axillary or supraclavicular adenopathy. The thyroid demonstrates no discrete nodules. Abdomen: Visualized upper abdomen demonstrates no definite acute abnormalities. IMPRESSION: 1. No evidence of central pulmonary embolism, with evaluation of distal subsegmental branches is limi kieran in the lung bases due to motion artifact. There is enlargement of the pulmonary arteries suggesti ve of pulmonary arterial hypertension. 2. Findings compatible with chronic interstitial lung disease redemonstrated with increased septal th ickening, groundglass opacities and bronchial wall thickening suggestive of superimposed pulmonary ed korina. 3. Increase in size of a pleural-based nodule in the right upper lobe anteriorly measuring up to 1.2 cm. The finding is indeterminate but a neoplastic process cannot be excluded. Consider further evalua tion with PET/CT or follow-up in 3-6 months to demonstrate stability. 4. Mildly enlarged mediastinal lymph nodes are nonspecific and can are likely reactive but the differ ential includes metastatic disease. Recommend attention on follow-up. Reviewed by: Kemal Ahumada MD on 11/18/2020 2:46 PM PDT Approved by: Kemal Ahumada MD on 11/18/2020 2:46 PM PDT Station ID: [id number]
[2020-11-18] MEDS ORDERED: IOPAMIDOL-300 100 ML VIAL IVP ONE (14:50)
[2020-11-18 15:37] VITALS: BP 138/68
== END 2020-11-18 15:37 | disposition home or self-care (01) ==
LOC: ED 11:53
DX: R07.89 Other chest pain (principal); Z95.5 Presence of coronary angioplasty implant and graft; I25.10 Atherosclerotic heart disease of native coronary artery without angina pectoris; I11.9 Hypertensive heart disease without heart failure
CPT/HCPCS: 36415; 71045; 71275; 80053; 83690; 84484; 85025; 93005; 99284; Q9967

== ENCOUNTER 2021-06-10 08:49 | Outpatient (CLI) | payer MEDICARE, BC ==
--- NOTE | 2021-06-10 13:04 | CT Report ---
PROCEDURE: CHEST WO INDICATIONS: PULMONARY NODULE TECHNIQUE: Noncontrast 1mm axial images were acquired from the pulmonary apices to the posterior costophrenic an gles. Axial 5 mm soft tissue kernel reconstructions were performed as well as 8 mm axial MIP and cor onal and sagittal 5 mm reformations. For radiation dose reduction, the following was used: automate d exposure control, adjustment of mA and/or kV according to patient size. COMPARISON: 11/18/2026 FINDINGS: Image quality: Excellent. Lungs and pleura: Pleural-based nodule in the right upper lobe anteriorly measures 0.9 x 0.9 x 1.0 c m. Interstitial pulmonary fibrosis with a peripheral and lower lung zone predominance is seen. There is traction bronchiectasis in the lung bases bilaterally. No pulmonary edema. No acute air space opac ities. No pleural effusions or pneumothorax. Central and peripheral airways are patent and normal i n caliber. Mediastinum: Heart size is normal. No pericardial effusion. No mediastinal adenopathy by size crit eria. Thoracic aorta and central pulmonary arteries are normal in size. Esophagus is normal in graciela jaja. No hiatal hernia. Coronary arteries have atherosclerotic calcifications. The patient is status post median sternotomy. Bones and chest wall: No suspicious bony lesions. No vertebral body compression fractures. No axil christina or supraclavicular adenopathy by size criteria. The thyroid is normal in size. Abdomen: Visualized upper abdominal solid organs and bowel loops appear normal in the absence of con trast. There is a small hiatal hernia. IMPRESSION: 1. Right upper lobe nodule is unchanged, measuring slightly smaller compared to 11/18/2020 now measuri ng your 0.9 x 0.9 x 1.0 cm. 2. Unchanged pulmonary fibrosis with septal thickening and traction bronchiectasis with a lower lung zone basilar predominance. There are multilevel degenerative changes. Reviewed by: Tre Gauthier on 06/10/2021 1:03 PM PST Approved by: Tre Gauthier on 06/10/2021 1:03 PM PST Station ID: [id number]
== END 2021-06-10 08:50 | disposition home or self-care (01) ==
LOC: DI 08:49
PROVIDERS: ATTEND Internal Medicine Critical Care Medicine
DX: R91.1 Solitary pulmonary nodule (principal); J84.10 Pulmonary fibrosis, unspecified; J47.9 Bronchiectasis, uncomplicated

== ENCOUNTER 2021-09-01 10:33 | Outpatient (CLI) | payer MEDICARE, BC ==
--- NOTE | 2021-09-01 16:55 | XRAY Report ---
PROCEDURE: Chest 2 View X-Ray INDICATIONS: COUGH, ILD TECHNIQUE: 2 view(s) of the chest. COMPARISON: CT chest 06/10/2021 x-ray 11/18/2020 FINDINGS: Surgical changes and devices: None. Lungs and pleura: No pleural effusions or pneumothorax. Chronic interstitial changes are present. Mediastinum: Mediastinal contours are normal. Heart size is normal. Bones and chest wall: No suspicious bony abnormalities. Soft tissues appear unremarkable. IMPRESSION: Chronic interstitial changes without visualized consolidation compared to prior exam. Reviewed by: Lurdes Hayward MD on 09/01/2021 4:54 PM PDT Approved by: Lurdes Hayward MD on 09/01/2021 4:54 PM PDT Station ID: [id number]
== END 2021-09-01 10:34 | disposition home or self-care (01) ==
LOC: DI 10:33
PROVIDERS: ATTEND Internal Medicine
DX: R05.9 Cough, unspecified (principal); J84.9 Interstitial pulmonary disease, unspecified

== ENCOUNTER 2021-10-19 08:21 | Emergency (ER) | payer MEDICARE, BC ==
[2021-10-19 08:48] LABS: BASOPHILS % (AUTO) 0.6 %; EOSINOPHILS # (AUTO) 0.3 10^3/uL (0.0-0.7); EOSINOPHILS % (AUTO) 4.5 %; HCT - HEMATOCRIT 40.8 % (42.0-52.0); HGB - HEMOGLOBIN 13.6 g/dL (14.0-18.0); LYMPHOCYTES # (AUTO) 1.9 10^3/uL (1.5-3.5); LYMPHOCYTES % (AUTO) 27.1 %; MEAN CORPUSCULAR HEMOGLOBIN 32.9 pg (27.0-31.0); MEAN CORPUSCULAR HGB CONC 33.3 g/dL (32.0-36.0); MEAN CORPUSCULAR VOLUME 98.8 fL (80.0-94.0); MEAN PLATELET VOLUME 9.3 fL (7.4-11.4); MONOCYTES # (AUTO) 0.5 10^3/uL (0.0-1.0); MONOCYTES % (AUTO) 7.7 %; NEUTROPHILS # (AUTO) 4.1 10^3/uL (1.5-6.6); PLT - PLATELET COUNT 157 10^3/uL (130-450); RED BLOOD COUNT 4.13 10^6/uL (4.70-6.10); WHITE BLOOD COUNT 6.9 x10^3/uL (4.8-10.8)
--- NOTE | 2021-10-19 08:52 | ED Physician Documentation ---
History of Present Illness - Stated complaint Stated Complaint: CHEST PAIN - Chief complaint Chief Complaint: Cardiac - History obtained from History obtained from: Patient, Family - History of Present Illness Timing: Today Pain level max: 7 Pain level now: 0 - Additonal information Additional information: Patient is an 86-year-old male who presents to the emergency department chest pain at 05 30 today. This awoke him from sleep. Described as sharp. Also described as pressure. Lasted for a few hours. Feels similar to his pulmonary fibrosis in the past. Did not feel like his prior heart attack. He states that he has had a recent cardiac stress test which was reportedly normal. History of 2 cardiac stents in the past. Sees [facility], Dr. Walker, Dr. Pereira for pulmonology. Currently asymptomatic. No difficulty breathing at this time. No nausea vomiting. Review of Systems Constitutional: denies: Fever, Chills Nose: denies: Rhinorrhea / runny nose, Congestion Cardiac: denies: Palpitations Respiratory: denies: Dyspnea, Cough, Wheezing GI: denies: Vomiting, Diarrhea Skin: denies: Rash Musculoskeletal: denies: Neck pain, Back pain PD PAST MEDICAL HISTORY - Past Medical History Past Medical History: Yes Cardiovascular: Congestive heart failure, Hypertension, High cholesterol, Coronary artery disease, Angina, [place], Atrial fibrillation, Arrhythmia, Valve disorder, Other Respiratory: Asthma, Shortness of breath, Sleep apnea, Other Neuro: None Endocrine/Autoimmune: None GI: GERD, GI bleed, Colon polyps, Hemorrhoids, Cholelithiasis : Benign prostate hypertrophy, Retention HEENT: Chronic vision loss, Chronic sinusitis, Chronic hearing loss Psych: Depression, Anxiety Musculoskeletal: Osteoarthritis, Chronic back pain Derm: Other - Past Surgical History Past Surgical History: Yes General: Cholecystectomy, Appendectomy, Colonoscopy, Other Ortho: Hip replacement, Rotator cuff repair /[employer]ON[employer]ENCE [employer]OR:  Cardiovascular: Coronary stent, Valve replacement, Cardiac catheterization HEENT: Cataracts, Tonsil/Adenoidectomy, Other Derm: Skin cancer surgery - Present Medications Home Medications: Ambulatory Orders Medication Instructions Recorded Confirmed Aspirin [Aspir 81] 81 mg PO DAILY 08/09/13 11/18/20 Atorvastatin Calcium [Lipitor] 40 mg PO DAILY 07/15/16 11/18/20 Acetaminophen 500 mg PO TID PRN 11/18/17 11/18/20 Cetirizine [ZyrTEC] 10 mg PO DAILY PRN 11/18/17 11/18/20 Cyclobenzaprine [Flexeril] 10 mg PO TID PRN 11/18/17 11/18/20 Bacitracin Zinc Oint 1 applic TOP BID #1 tube 10/31/19 11/18/20 cephALEXin [Keflex] 500 mg PO Q6H #28 capsule 10/31/19 11/18/20 Albuterol Sulfate [Proair Hfa 1 - 2 puffs INH Q4H PRN 08/22/20 11/18/20 Inhaler] Yporef-Bhesfoz-Jshs-L-Cysteine 1 tab PO DAILY 08/22/20 11/18/20 Doxycycline Hyclate 100 mg PO BID 08/22/20 11/18/20 Finasteride [Proscar] 5 mg PO DAILY 08/22/20 11/18/20 Fludrocortisone [Florinef] 0.1 mg PO DAILY 08/22/20 11/18/20 Fluorouracil [Carac] 1 applic TP DAILY 08/22/20 11/18/20 Montelukast [Singulair] 10 mg PO QPM 08/22/20 11/18/20 Niacinamide 500 mg PO DAILY 08/22/20 11/18/20 Nitroglycerin [Nitrostat] 0.4 mg SL Q5MIN PRN 08/22/20 11/18/20 Pantoprazole [Protonix] 40 mg PO BID 08/22/20 11/18/20 Pirfenidone [Esbriet] 801 mg PO TID 08/22/20 11/18/20 Potassium Citrate [Potassium 10 meq PO DAILY 08/22/20 11/18/20 Citrate ER] Sodium Chloride [Salt Tab] 1 gm PO DAILY 08/22/20 11/18/20 Tamsulosin [Flomax] 0.8 mg PO DAILY 08/22/20 11/18/20 Tizanidine HCl 2 mg PO PRN PRN 08/22/20 11/18/20 Vitamin B Complex 1 each PO DAILY 08/22/20 11/18/20 diltiaZEM CD [Cardizem Cd] 180 mg PO DAILY 08/22/20 11/18/20 traMADol [Ultram] 50 mg PO Q8HR PRN 08/22/20 11/18/20 - Allergies Allergies/Adverse Reactions: Allergies Allergy/AdvReac Type Severity Reaction Status Date / Time codeine Allergy Emesis Verified 11/18/20 12:10 fluoxetine HCl * AdvReac Severe urinary Verified 11/18/20 12:10 [From Prozac] retention Horse/Equine Containing AdvReac Severe Blindness Verified 11/18/20 12:10 Products erythromycin base AdvReac restrictive Verified 11/18/20 12:10 airway - Social History Does the pt smoke?: No Smoking Status: Never smoker Does the pt drink ETOH?: Yes Does the pt have substance abuse?: No - Immunizations Immunizations are current?: No Immunizations: TDAP >10years/unknown - POLST Patient has POLST: No PD ED PE NORMAL - Vitals Vital signs reviewed: Yes - General General: Alert and oriented X 3, No acute distress - HEENT HEENT: PERRL, Moist mucous membranes - Neck Neck: Supple, no meningeal sign - Cardiac Cardiac: RRR, Strong equal pulses - Respiratory Respiratory: No respiratory distress, Clear bilaterally - Abdomen Abdomen: Soft, Non tender, Non distended - Derm Derm: Warm and dry - Extremities Extremities: No edema, No calf tenderness / cord - Neuro Neuro: Alert and oriented X 3 - Psych Psych: Normal mood, Normal affect Results - Vitals Vitals: Vital Signs - 24 hr 10/19/21 10/19/21 10/19/21 08:26 08:30 09:01 Temperature 36.6 C Heart Rate 65 66 62 Respiratory 18 17 Rate Blood Pressure 136/49 H 140/72 H O2 Saturation 99 99 95 10/19/21 10/19/21 10/19/21 09:36 10:03 10:30 Temperature Heart Rate 53 L 56 L 64 Respiratory 17 15 14 Rate Blood Pressure 129/67 126/66 124/96 H O2 Saturation 95 97 96 10/19/21 10/19/21 10/19/21 11:00 11:25 13:00 Temperature 36.7 C Heart Rate 59 L 62 63 Respiratory 17 16 18 Rate Blood Pressure 122/64 135/70 H O2 Saturation 95 96 94 10/19/21 13:06 Temperature 96.6 C H Heart Rate 63 Respiratory 20 Rate Blood Pressure 112/72 O2 Saturation 94 Oxygen O2 Source Room air - EKG (time done) 0828 Rate: Rate (enter#) (65) Rhythm: NSR [place]: Normal Intervals: Normal IA QRS: LVH Ischemia: Normal ST segments - Labs Labs: Laboratory Tests 10/19/21 10/19/21 10/19/21 08:42 08:42 08:42 WBC 6.9 RBC 4.13 L Hgb 13.6 L Hct 40.8 L MCV 98.8 H MCH 32.9 H MCHC 33.3 RDW 13.0 Plt Count 157 MPV 9.3 Neut # (Auto) 4.1 Lymph # (Auto) 1.9 Dauphin # (Auto) 0.5 Eos # (Auto) 0.3 Baso # (Auto) 0.0 Absolute Nucleated RBC 0.00 Nucleated RBC % 0.0 Sodium 140 Potassium 4.1 Chloride 107 Carbon Dioxide 22 Anion Gap 11.0 BUN 20 Creatinine 1.1 Estimated GFR (MDRD) 63 L Glucose 103 H Calcium 9.1 Total Bilirubin 0.5 AST 15 ALT 13 Alkaline Phosphatase 44 Troponin I High Sens 9.7 Total Protein 6.7 Albumin 4.1 Globulin 2.6 Albumin/Globulin Ratio 1.6 Lipase 40 10/19/21 10:28 WBC RBC Hgb Hct MCV MCH MCHC RDW Plt Count MPV Neut # (Auto) Lymph # (Auto) [place] # (Auto) Eos # (Auto) Baso # (Auto) Absolute Nucleated RBC Nucleated RBC % Sodium Potassium Chloride Carbon Dioxide Anion Gap BUN Creatinine Estimated GFR (MDRD) Glucose Calcium Total Bilirubin AST ALT Alkaline Phosphatase Troponin I High Sens 9.1 Total Protein Albumin Globulin Albumin/Globulin Ratio Lipase - Rads (name of study) cxr Radiology: Final report received, EMP read contemporaneously, See rad report PD MEDICAL DECISION MAKING - ED course Complexity details: reviewed results, re-evaluated patient, considered differential (No ST elevation IN, no aortic dissection, no PE, no tension pneumothorax, no aortic aneurysm), d/w patient, d/w risk assessment consultant ED course: 86-year-old male with chest pain today. Unclear etiology. Negative high sensitivity troponin x2. Patient is fully asymptomatic here. Discussed the case with his commercial real estate underwriter. He will follow-up with him later this week. Patient is comfortable going home. Patient counseled regarding signs and symptoms for which I believe and urgent re-evaluation would be necessary. Patient with good understanding of and agreement to plan and is comfortable going home at this time This document was made in part using voice recognition software. While efforts are made to proofread this document, sound alike and grammatical errors may occur. IMPRESSION: No acute cardiopulmonary disease process. Chronic bilateral interstitial prominence Departure - Departure Disposition: 01 Home, Self Care Clinical Impression: Chest pain Qualifiers: Chest pain type: unspecified Qualified Code(s): R07.9 - Chest pain, unspecified Condition: Good Instructions: ED Chest Pain Atypical Unkn Cause Follow-Up: Raymundo Santa DO [Primary Care Provider] - Within 1 week Bernardino Vail MD [Physician No Access] - Comments: Dr. Walker's office will call you later this week for an appointment. Please return if you worsen. Your laboratory testing, EKG and chest x-ray do not show any acute abnormalities today. Discharge Date/Time: 10/19/21 13:10
--- NOTE | 2021-10-19 08:53 | XRAY Report ---
PROCEDURE: Chest 1 View X-Ray INDICATIONS: Chest Pain TECHNIQUE: One view of the chest was acquired. COMPARISON: 09/01/2021, 11/18/2020. FINDINGS: Surgical changes and devices: Median sternotomy wires.. Lungs and pleura: No pleural effusions or pneumothorax. Interstitial prominence with peripheral pred ominance is stable compared to prior exams. Mediastinum: Mediastinal contours appear normal. Heart size is normal. Bones and chest wall: No suspicious bony lesions. Overlying soft tissues appear unremarkable. IMPRESSION: No acute cardiopulmonary disease process. Chronic bilateral interstitial prominence Reviewed by: Susi Sharpe MD, PhD on 10/19/2021 8:52 AM PDT Approved by: Susi Sharpe MD, PhD on 10/19/2021 8:52 AM PDT Station ID: [id number]
[2021-10-19 09:03] LABS: ALBUMIN 4.1 g/dL (3.2-5.5); ALBUMIN/GLOBULIN RATIO 1.6 (1.0-2.2); BILIRUBIN,TOTAL 0.5 mg/dL (0.2-1.0); CALCIUM 9.1 mg/dL (8.5-10.3); CREATININE 1.1 mg/dL (0.6-1.2); POTASSIUM 4.1 mmol/L (3.5-5.0); TOTAL PROTEIN 6.7 g/dL (6.7-8.2)
[2021-10-19 13:07] VITALS: BP 112/72
== END 2021-10-19 13:10 | disposition home or self-care (01) ==
LOC: ED 08:21
DX: R07.9 Chest pain, unspecified (principal); I11.0 Hypertensive heart disease with heart failure; I50.9 Heart failure, unspecified; I48.91 Unspecified atrial fibrillation; Z79.82 Long term (current) use of aspirin
CPT/HCPCS: 36415; 80053; 83690; 84484; 85025; 93005; 99283; 99284

== ENCOUNTER 2023-06-22 08:00 | Outpatient (CLI) | payer MEDICARE, BC | END 2023-06-22 23:59 | disposition home or self-care (01) | LOC: LAB.R 08:00 | PROVIDERS: ATTEND Nurse Practitioner | DX: R20.8 Other disturbances of skin sensation (principal) | CPT/HCPCS: 87070; 87077; 87181; 87205 ==

== ENCOUNTER 2023-07-29 11:44 | Emergency (ER) | payer MEDICARE, BC ==
--- NOTE | 2023-07-29 12:15 | ED Physician Documentation ---
PD HPI HEAD INJURY - Stated complaint Stated Complaint: H/A - Chief complaint Chief Complaint: Neuro - History obtained from History obtained from: Patient - History of Present Illness Mechanism of head injury: Fell Where head injury occurred: Home Timing - onset: How many weeks ago (3) Location of injury: Left, Front Quality of pain: Pain, Throbbing Associated symptoms: No: LOC, Nausea / vomiting, Neck pain Symptoms improve with: Rest Contributing factors: No: Anticoagulated, Intoxicated Similar symptoms before: Has not had sx before Recently seen: Not recently seen - Additional information Additional information: Cyrus Kimball is an 88-year-old male who had a vivid more dream 1 month ago and leapt out of bed. He hit the top of his head and had a small laceration. He refused to be seen at the time and he has since developed a progressive headache. He is here today for evaluation of this head injury. He indicates that he has had a number of vivid dreams enough so that his puts pillows in the bed to prevent him from moving all over the place. HeIs also complaining of constipation and difficulty walking. He denies falls. Review of Systems Constitutional: denies: Fever Eyes: denies: Loss of vision, Decreased vision Ears: denies: Ear pain Nose: denies: Congestion Throat: denies: Sore throat Cardiac: denies: Chest pain / pressure, Palpitations Respiratory: reports: Dyspnea (similar to always), Cough, Wheezing GI: denies: Abdominal Pain, Nausea, Vomiting, Constipation, Diarrhea : denies: Dysuria, Frequency Skin: denies: Rash Musculoskeletal: denies: Neck pain, Back pain, Extremity pain Neurologic: reports: Headache, Head injury. denies: Generalized weakness, Focal weakness, Numbness, LOC PD PAST MEDICAL HISTORY - Past Medical History Cardiovascular: Congestive heart failure, Hypertension, High cholesterol, Coronary artery disease, Angina, NE, Atrial fibrillation, Arrhythmia, Valve disorder, Other Respiratory: Asthma, Shortness of breath, Sleep apnea, Other Neuro: None Endocrine/Autoimmune: None GI: GERD, GI bleed, Colon polyps, Hemorrhoids, Cholelithiasis : Benign prostate hypertrophy, Retention HEENT: Chronic vision loss, Chronic sinusitis, Chronic hearing loss Psych: Depression, Anxiety Musculoskeletal: Osteoarthritis, Chronic back pain Derm: Other - Past Surgical History Past Surgical History: Yes General: Cholecystectomy, Appendectomy, Colonoscopy, Other Ortho: Hip replacement, Rotator cuff repair Cardiovascular: Coronary stent, Valve replacement, Cardiac catheterization HEENT: Cataracts, Tonsil/Adenoidectomy, Other Derm: Skin cancer surgery - Present Medications Home Medications: Ambulatory Orders Medication Instructions Recorded Confirmed Aspirin [Aspir 81] 81 mg PO DAILY 08/09/13 11/18/20 Atorvastatin Calcium [Lipitor] 40 mg PO DAILY 07/15/16 11/18/20 Acetaminophen 500 mg PO TID PRN 11/18/17 11/18/20 Cetirizine [ZyrTEC] 10 mg PO DAILY PRN 11/18/17 11/18/20 Cyclobenzaprine [Flexeril] 10 mg PO TID PRN 11/18/17 11/18/20 Bacitracin Zinc Oint 1 applic TOP BID #1 tube 10/31/19 11/18/20 cephALEXin [Keflex] 500 mg PO Q6H #28 capsule 10/31/19 11/18/20 Albuterol Sulfate [Proair Hfa 1 - 2 puffs INH Q4H PRN 08/22/20 11/18/20 Inhaler] Xidvzk-[id number]-Dbdp-L-Cysteine 1 tab PO DAILY 08/22/20 11/18/20 Doxycycline Hyclate 100 mg PO BID 08/22/20 11/18/20 Finasteride [Proscar] 5 mg PO DAILY 08/22/20 11/18/20 Fludrocortisone [Florinef] 0.1 mg PO DAILY 08/22/20 11/18/20 Fluorouracil [Carac] 1 applic TP DAILY 08/22/20 11/18/20 Montelukast [Singulair] 10 mg PO QPM 08/22/20 11/18/20 Niacinamide 500 mg PO DAILY 08/22/20 11/18/20 Nitroglycerin [Nitrostat] 0.4 mg SL Q5MIN PRN 08/22/20 11/18/20 Pantoprazole [Protonix] 40 mg PO BID 08/22/20 11/18/20 Pirfenidone [Esbriet] 801 mg PO TID 08/22/20 11/18/20 Potassium Citrate [Potassium 10 meq PO DAILY 08/22/20 11/18/20 Citrate ER] Sodium Chloride [Salt Tab] 1 gm PO DAILY 08/22/20 11/18/20 Tamsulosin [Flomax] 0.8 mg PO DAILY 08/22/20 11/18/20 Tizanidine HCl 2 mg PO PRN PRN 08/22/20 11/18/20 Vitamin B Complex 1 each PO DAILY 08/22/20 11/18/20 diltiaZEM CD [Cardizem Cd] 180 mg PO DAILY 08/22/20 11/18/20 traMADol [Ultram] 50 mg PO Q8HR PRN 08/22/20 11/18/20 - Allergies Allergies/Adverse Reactions: Allergies Allergy/AdvReac Type Severity Reaction Status Date / Time codeine Allergy Emesis Verified 07/29/23 11:54 fluoxetine HCl * AdvReac Severe urinary Verified 07/29/23 11:54 [From Prozac] retention Horse/Equine Containing AdvReac Severe Blindness Verified 07/29/23 11:54 Products erythromycin base AdvReac restrictive Verified 07/29/23 11:54 airway - Social History Does the pt smoke?: No Smoking Status: Never smoker Does the pt drink ETOH?: Yes Does the pt have substance abuse?: No - Immunizations Immunizations are current?: No Immunizations: TDAP >10years/unknown - POLST Patient has POLST: No PD ED PE NORMAL - Vitals Vital signs reviewed: Yes (hypertensive mild with wide pulse pressure. ) - General General: Alert and oriented X 3, No acute distress, Well developed/nourished - HEENT HEENT: Atraumatic, PERRL, EOMI, Other (no tenderness to deep scalp palpation ) - Neck Neck: Supple, no meningeal sign, No bony TTP - Cardiac Cardiac: RRR, No murmur - Respiratory Respiratory: Other (tachypneia at rest with diminished breath sounds. 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 Consistent with Parkinsons. ) Eye Opening: Spontaneous Motor: Obeys Commands Verbal: Oriented GCS Score: 15 - Psych Psych: Normal mood, Normal affect Results - Vitals Vitals: Vital Signs - 24 hr 07/29/23 07/29/23 11:47 13:00 Temperature 36.5 C Heart Rate 79 62 Respiratory 24 16 Rate Blood Pressure 131/64 H 130/60 O2 Saturation 97 99 Oxygen O2 Source Room air - Labs Labs: Laboratory Tests 07/29/23 07/29/23 12:21 12:21 WBC 7.4 RBC 3.78 L Hgb 12.2 L Hct 38.2 L MCV 101.1 H MCH 32.3 H MCHC 31.9 L RDW 13.2 Plt Count 141 MPV 9.1 Neut # (Auto) 4.9 Lymph # (Auto) 1.8 [place] # (Auto) 0.5 Eos # (Auto) 0.2 Baso # (Auto) 0.0 Absolute Nucleated RBC 0.00 Nucleated RBC % 0.0 Sodium 139 Potassium 3.9 Chloride 110 Carbon Dioxide 25 Anion Gap 4.0 L BUN 21 H Creatinine 0.9 Estimated GFR (MDRD) 79 L Glucose 112 H Calcium 8.9 Total Bilirubin 0.4 AST 12 ALT 8 L Alkaline Phosphatase 59 Total Protein 6.4 Albumin 3.8 Globulin 2.6 Albumin/Globulin Ratio 1.5 Lipase 20 - Rads (name of study) CT head Relevant Findings:: Prelim report reviewed (Impression: No intracranial hemorrhage is seen. No significant intracranial abnormality is seen), EMP independent interpretation of test Procedures - IVC sono (time) 1315 Bedside IVC sono: IVC measures (cm) (1.63), Euvolemia PD Medical Decision Making - ED course Complexity details: reviewed old records, reviewed results, re-evaluated patient, considered differential, d/w patient Social Determinants of Health: Cyrus Quiroz has a that works here at the hospital and he did not want to worry her about his visit to the emergency department. I discussed with the patient the findings and he will discuss this with his let her know that he was seen here and I have indicated to him that he will need to follow-up and he will need to let his know about this. He has a suspicion for Parkinson's disease. ED course: 88-year-old Cyrus Quiroz presents to the emergency department today after a fall at home during a vivid dream and a strike to his head. He has had a persistence of headache and comes to the emergency department now concerned about the possibility of an intracranial hemorrhage. He had a second that this happened 2. Today we find his CT scan without evidence of intracranial hemorrhage. He does have a headache and we have treated this with 30 mg of Toradol IM. On physical examination I found the patient to have cogwheel rigidity to the right upper extremity on exam and he does have a wide-based shuffling gait. He reports falling if he leans forward and he reports vivid dreams that are frequent. Enough that his is put pillows in the bed. He is also complaining of constipation. All of these findings suggest the diagnosis of Parkinson's disease. I have shared this with the patient and instructed him to follow-up with his primary care doctor Dr. Trevino for evaluation and to potentially begin treatment. 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 The last symptom to leave from a concussion is usually the headache and this can sometimes persist for weeks to months. It is okay to use Tylenol or Advil for treatment of this headache. You will not cause a problem. Today on your visit we did notice several symptoms and signs of Parkinson's disease and I am requesting that you follow-up with your primary care doctor for evaluation and potential treatment. You may need a referral to neurology. The findings we found today are 1. a wide-based shuffling gait 2. cogwheel rigidity to the right upper extremity 3. a history of falls with positioning 4. constipation and 5. vivid dreams with movement. I would suggest sharing this information with your as you will likely need some treatment. Forms: PCP List
[2023-07-29 12:27] LABS: BASOPHILS % (AUTO) 0.4 %; EOSINOPHILS # (AUTO) 0.2 10^3/uL (0.0-0.7); HCT - HEMATOCRIT 38.2 % (42.0-52.0); HGB - HEMOGLOBIN 12.2 g/dL (14.0-18.0); LYMPHOCYTES # (AUTO) 1.8 10^3/uL (1.5-3.5); LYMPHOCYTES % (AUTO) 24.5 %; MEAN CORPUSCULAR HEMOGLOBIN 32.3 pg (27.0-31.0); MEAN CORPUSCULAR HGB CONC 31.9 g/dL (32.0-36.0); MEAN CORPUSCULAR VOLUME 101.1 fL (80.0-94.0); MEAN PLATELET VOLUME 9.1 fL (7.4-11.4); MONOCYTES # (AUTO) 0.5 10^3/uL (0.0-1.0); MONOCYTES % (AUTO) 6.1 %; NEUTROPHILS # (AUTO) 4.9 10^3/uL (1.5-6.6); NEUTROPHILS % (AUTO) 65.7 %; PLT - PLATELET COUNT 141 10^3/uL (130-450); RED BLOOD COUNT 3.78 10^6/uL (4.70-6.10); RED CELL DISTRIBUTION WIDTH 13.2 % (12.0-15.0); WHITE BLOOD COUNT 7.4 x10^3/uL (4.8-10.8)
[2023-07-29 12:38] LABS: ALBUMIN 3.8 g/dL (3.2-5.5); ALBUMIN/GLOBULIN RATIO 1.5 (1.0-2.2); BILIRUBIN,TOTAL 0.4 mg/dL (0.2-1.0); CALCIUM 8.9 mg/dL (8.5-10.3); CREATININE 0.9 mg/dL (0.6-1.3); POTASSIUM 3.9 mmol/L (3.5-4.5); TOTAL PROTEIN 6.4 g/dL (6.4-8.9)
--- NOTE | 2023-07-29 12:45 | CT Report ---
PROCEDURE: Head WO INDICATIONS: fall head injury persistent headache. TECHNIQUE: Noncontrast 4.5 mm thick angled axial sections acquired from the foramen magnum to the vertex. For r adiation dose reduction, the following was used: automated exposure control, adjustment of mA and/or kV according to patient size. COMPARISON: 08/28/2019 FINDINGS: Image quality: Excellent. CSF spaces: Basal cisterns are patent. No extra-axial fluid collections. Ventricles are normal in size and shape. Brain: No midline shift. No intracranial masses or hemorrhage. Canales-white matter interface is norm al. Age-appropriate brain parenchymal volume loss and chronic small vessel ischemic change can be se en. Skull and face: Mild scalp thickening can be seen on the right superiorly and posteriorly, as on seri es 14 image 36. This is similar to 2020 and is unlikely related to an acute injury. No associated porsha varial fracture can be seen. Calvarium and visualized facial bones are intact, without suspicious les ions. Sinuses: Scattered mild to moderate areas of mucosal thickening can be seen within the paranasal sinu ses. No significant abnormal fluid can be seen within the mastoid air cells. IMPRESSION: No intracranial hemorrhage is seen. No significant intracranial abnormality is seen. Reviewed by: Gabe Ricks MD on 07/29/2023 11:43 AM GEORGE Approved by: Gabe Ricks MD on 07/29/2023 11:43 AM GEORGE Station ID: [id number]
[2023-07-29 13:38] VITALS: BP 144/72; O2SAT 98
[2023-07-29] MEDS: KETOROLAC 30 MG/ML VIAL IM STA (13:39)
[2023-07-29] MEDS: KETOROLAC 30 MG/ML VIAL IVP STA (13:42)
== END 2023-07-29 13:44 | disposition home or self-care (01) ==
LOC: ED 11:44
DX: G44.329 Chronic post-traumatic headache, not intractable (principal); W19.XXXA Unspecified fall, initial encounter; Y92.009 Unspecified place in unspecified non-institutional (private) residence as the place of occurrence of the external cause; G20.B2 Parkinson's disease with dyskinesia, with fluctuations; I11.0 Hypertensive heart disease with heart failure; I50.9 Heart failure, unspecified
CPT/HCPCS: 36415; 80053; 83690; 85025; 96372; 99284